=== PATIENT | male | born 1965 | race Caucasian/White ===

== ENCOUNTER → 2020-08-22 12:06 | Outpatient (REF) | payer OTHER, SELFPAY ==
[2020-08-22 13:22] LABS: Basophils Percent Auto 0.5 % (0-2); Eosinophils Percent Auto 0.5 % (0-4); Hematocrit 43.5 % (42-52); Hemoglobin 15.1 g/dl (14.0-18.0); Imm Gran Abs Auto 0.04 X10*3/uL (0.00-0.03); Imm Gran Pct Auto 0.5 % (0.0-0.4); Lymphocytes Absolute Auto 0.9 X10*3/uL (1.2-4.9); Lymphocytes Percent Auto 10.6 % (20-40); MANUAL DIFF FLAG NO; Mean Corpuscular HGB Conc 34.7 g/dl (31.0-36.0); Mean Corpuscular Hemoglobin 33.1 pg (27.0-33.0); Mean Corpuscular Volume 95.4 fL (80-98); Mean Platelet Volume 10.1 fL (9.4-12.4); Monocytes Absolute Auto 0.8 X10*3/uL (0.1-1.2); Monocytes Percent Auto 9.5 % (2-11); Neutrophils Absolute Auto 6.7 X10*3/uL (2.0-8.3); Neutrophils Percent Auto 78.4 % (45-73); Platelet Count 154 X10*3/uL (160-400); Red Blood Count 4.56 X10*6/uL (4.60-5.80); Red Cell Distribution Width 12.1 % (11.0-16.0); White Blood Count 8.6 X10*3/uL (4.8-10.8)
[2020-08-22 13:57] LABS: B Type Natriuretic Peptide 908 pg/mL (<100)
[2020-08-22 14:13] LABS: Thyroid Stimulating Hormone 3.12 uIU/mL (0.32-4.0)
[2020-08-22 14:16] LABS: Alanine Aminotransferase 32 U/L (0-40); Albumin Level 4.1 g/dL (3.5-5.0); Alkaline Phosphatase 50 U/L (39-117); Anion Gap 14 (12-20); Aspartate Amino Transferase 35 U/L (5-37); Bilirubin Total 2.7 mg/dL (0.0-1.0); Blood Urea Nitrogen 9 mg/dL (9-16); Calcium 9.5 mg/dL (8.4-10.2); Carbon Dioxide 29 mmol/L (22-29); Chloride 87 mmol/L (96-108); Cholesterol 125 mg/dL; Estimated Glomerular Filt Rate > 60; Glucose Random 101 mg/dL (60-115); Potassium 4.9 mmol/L (3.3-5.1); Sodium 125 mmol/L (135-145); Total Protein 6.6 g/dL (6.5-8.0)
== END ==
LOC: HO.CARD 12:06
PROVIDERS: Visit Provider Internal Medicine
DX: I48.91 Unspecified atrial fibrillation (principal); R60.0 Localized edema
CPT/HCPCS: 36415; 80053; 82465; 83880; 84443; 85025

== ENCOUNTER → 2020-08-23 10:46 | Outpatient (REF) | payer OTHER, SELFPAY ==
--- NOTE | 2020-08-23 10:53 | CA_ITS ---
Transthoracic Echocardiogram Patient (Last, First, Middle): Adria Castro, Gender: Male Date of : 1965 Age: 54 Procedure Date: 08/23/2020 Procedure Type: Transthoracic Echocardiogram Location: OP Height: 195.58 cm Weight: 136.08 kg BSA: 2.66 m2 Heart Rate: bpm BP: 114 / 80 mmHg Handling Tech: JUAN DIEGO Machado MD: Hunter Funez MD Bulk Filler: Bernardo Wilson MD Symptoms: NEW AFIB Study Quality: Technically Difficult/CONTRAST ECG Rhythm: Atrial Fibrillation Conclusions: - 1. Moderately dilated left ventricle with mild LVH with severely reduced LV ejection fraction at 20-25% 2. Severely biatrial enlargement 3. Moderately increased right ventricular size with low normal RV systolic function 4. Mild mitral regurgitation 5. [id number] tricuspid regurgitation 6. Moderately elevated right ventricular systolic pressure with significantly elevated right atrial pressures 7. No significant pericardial effusion Findings Procedure Information Contrast agent, definity, is being given per protocol without apparent complications. Left Ventricle Moderately increased left ventricular cavity size. There is mildly increased left ventricular wall thickness. The left ventricular systolic function is severely decreased. The visually estimated ejection fraction is between 20 25%. Diastolic function is indeterminate on the basis of available data. Right Ventricle Moderately increased right ventricular cavity size. There is mildly decreased right ventricular systolic function. Atria Severe biatrial enlargement. Aortic Valve There is mild calcification of the aortic valve. There is no aortic valve stenosis. There is no aortic valve regurgitation. Mitral Valve There is mild anterior and posterior mitral leaflet thickening. There is mild mitral annular calcification. There is mild mitral valve regurgitation. There is no mitral valve stenosis. Pulmonic Valve The pulmonic valve was not well visualized. Tricuspid Valve Likely normal tricuspid valve structure and function. There is mild to moderate tricuspid valve regurgitation. Significantly elevated right atrial pressure. Moderate pulmonary hypertension is present. Great Vessels There is mild dilatation of the ascending aorta measuring 3.90 cm. Venous The inferior vena cava is severely dilated and does not collapse with inspiration. Pericardium/Pleural There is no evidence of pericardial effusion. Prior Study Comparison No prior study available for comparison. Findings discussed with Dr. Funez Measurements 2D Linear Measurements IVSd: 1.20 0.6-0.9/0.6-1.0 cm LVIDd: 6.53 3.9-5.3/4.2-5.9 cm LVIDd Index: 2.45 2.4-3.2/2.2-3.1 cm/m2 LVIDs: 5.50 2.0-3.6 cm LVPWd: 1.19 0.7-1.1 cm Ao Root: 3.70 2.1-3.5 cm LA Diam: 5.50 2.7-3.8/3.0-4.0 cm LAIDs Index: 2.07 1.5-2.3 cm/m2 LV Mass: 448.54 67-162/88-224 g LV Mass Index: 168.62 43-95/49-115 g/m2 LVOT Diam: 2.20 3.0+(-)1.3 cm 2D Systolic Function EF 4C: 24.90 >55% EF 2C: 25.40 >55% EF BiP: 22.80 >55% Aortic Valve AoV Pk Brice: 1.28 AoV Mn Brice: 0.95 AoV VTI: 0.24 AoV Pk Grad: 7.00 Aov Mn Grad: 4.00 DENNIS Cont.VTI: 2.22 LVOT LVOT Pk Brice: 0.77 LVOT Mn Brice: 0.52 LVOT VTI: 0.14 LVOT Pk Grad: 2.00 LVOT Mn Grad: 1.00 LVOT Diam: 2.20 LVOT Area: 3.80 Tricuspid Valve TR Pk Brice: 3.17 TR Pk Grad: 40.00 RA Press: 15.00 RVSP: 55.00 Great Vessels Aorta Ao Root-2D: 3.70 2.0-3.7 cm Ao Asc: 3.90 2.1-3.4 cm Ao Arch: 2.90 Updated in Other Vendor System with Status of Final Bernardo Wilson MD electronically signed on 08/23/2020 12:13:19 PM with status of Final
== END ==
LOC: HO.CARD 10:46
PROVIDERS: Visit Provider Internal Medicine
DX: I48.91 Unspecified atrial fibrillation (principal); R60.9 Edema, unspecified
CPT/HCPCS: 93306; Q9957

== ENCOUNTER 2020-08-25 09:48 | Outpatient (REF) | payer OTHER, SELFPAY ==
--- NOTE | ~2020-08-25 | XR_ITS ---
EXAMINATION: XR CHEST CLINICAL INFORMATION: Congestive heart COMPARISON: None TECHNIQUE: 2 views of the chest were obtained. FINDINGS: Cardiomegaly and pulmonary venous congestion without overt edema. Lungs are clear. No pleural effusion or pneumothorax. No acute or suspicious osseous abnormalities. XR/XR chest 2V IMPRESSION: Cardiomegaly and pulmonary venous congestion without overt edema.
== END 2020-08-25 09:49 | disposition home or self-care (01) ==
LOC: HO.XRAY 09:48
PROVIDERS: PCP Internal Medicine; Referring Provider Internal Medicine; Visit Provider Internal Medicine Cardiovascular Disease
DX: I50.21 Acute systolic (congestive) heart failure (principal); I42.9 Cardiomyopathy, unspecified; I48.91 Unspecified atrial fibrillation; R06.81 Apnea, not elsewhere classified; G47.10 Hypersomnia, unspecified; Z79.899 Other long term (current) drug therapy
CPT/HCPCS: 71046

== ENCOUNTER → 2020-08-28 14:35 | Outpatient (REF) | payer OTHER, SELFPAY ==
--- NOTE | 2020-08-28 14:50 | ECG_ITS ---
Hook-up date: 2020-08-28 15:20:00 Duration: 42:32:00 Test Indications: PVC'S, UNSPEC AFIB Medications: 410144 QRS complexes 2958 Ventricular ectopics which represent 2 % of total QRS comp. * Supraventricular ectopics which represent % of total QRS comp. * Paced QRS complexs which represent % of total QRS comp. VENTRICULAR ECTOPY 2910 Isolated 6 Bigeminal Cycles 24 Couplets 0 Runs 0 Beats in Runs * Beats LONGEST at * BPM at :: -- * Beats FASTEST at * BPM at :: -- SUPRAVENTRICULAR ECTOPY * Isolated * Couplets * Runs * Beats in Runs * Beats LONGEST at * BPM at :: -- * Beats FASTEST at * BPM at :: -- HEART RATES 62 MIN at 05:27:24 2020-08-29 95 AVG 148 MAX at 11:33:16 2020-08-29 LONGEST RR 1.5760 secs at 06:17:32 2020-08-29 S-T LEVELS Channel 1 - 128 mm at 15:20:00 2020-08-28 - 128 mm at 15:20:00 2020-08-28 Channel 2 - 128 mm at 15:20:00 2020-08-28 - 128 mm at 15:20:00 2020-08-28 Channel 3 - 128 mm at 03:43:91 -- - 128 mm at 03:43:91 Underlying rhythm atrial fibrillation; Average ventricular rate 95/min; range 62-148/min; About 28% of the time, rate >100/min; Occasional PVCs (2%); Patient diary not available for review. Less than optimal rate control. Referred By: Bernardo Wilson Overread By: POP AUGUSTE
== END ==
LOC: HO.CARD 14:35
PROVIDERS: PCP Internal Medicine; Visit Provider Internal Medicine Cardiovascular Disease
DX: I49.3 Ventricular premature depolarization (principal)
CPT/HCPCS: 93226

== ENCOUNTER 2020-09-07 10:26 | Outpatient (REF) | payer OTHER, SELFPAY ==
[2020-09-07 13:10] LABS: B Type Natriuretic Peptide 631 pg/mL (<100)
[2020-09-07 13:15] LABS: Anion Gap 15 (12-20); Blood Urea Nitrogen 19 mg/dL (9-16); Calcium 10.6 mg/dL (8.4-10.2); Carbon Dioxide 29 mmol/L (22-29); Chloride 100 mmol/L (96-108); Estimated Glomerular Filt Rate > 60; Glucose Random 94 mg/dL (60-115); Potassium 5.1 mmol/L (3.3-5.1); Sodium 139 mmol/L (135-145)
[2020-09-07 13:33] LABS: Ferritin 864 ng/mL (20-250)
== END 2020-09-07 10:27 | disposition home or self-care (01) ==
LOC: HO.LAB 10:26
PROVIDERS: PCP Internal Medicine; Referring Provider Internal Medicine; Visit Provider Internal Medicine Cardiovascular Disease
DX: I50.21 Acute systolic (congestive) heart failure (principal); I42.9 Cardiomyopathy, unspecified; I48.91 Unspecified atrial fibrillation; Z79.899 Other long term (current) drug therapy
CPT/HCPCS: 36415; 80048; 82728; 83735; 83880; 93005

== ENCOUNTER → 2020-09-14 09:54 | Outpatient (REF) | payer OTHER, SELFPAY | LOC: HO.SL 09:54 | PROVIDERS: PCP Internal Medicine; Visit Provider Internal Medicine Cardiovascular Disease | DX: I42.9 Cardiomyopathy, unspecified (principal); I50.21 Acute systolic (congestive) heart failure; G47.30 Sleep apnea, unspecified | CPT/HCPCS: 95806 ==

== ENCOUNTER → 2020-10-02 13:43 | Outpatient (BNVA) | payer OTHER, SELFPAY | PROVIDERS: PCP Internal Medicine; Visit Provider Internal Medicine ==

== ENCOUNTER 2020-10-04 11:31 | Day surgery (SDC) | payer OTHER, SELFPAY ==
[2020-09-29 13:30] VITALS: BMI 32.6
--- NOTE | 2020-10-03 08:10 | HO.ANESPROP2 ---
Documented by User: Lizbeth Straussney 10/03/20 08:14 HPI - Anesthesia Eval Consult details Narrative: 55yo M for Cardioversion xarelto for afib PMFSH Active Problems Active Problems: All Active Problems (Updated 10/02/20 @ 14:38 by Ousmane Lock MD) GWENDOLYN (obstructive sleep apnea) (Acute) Obesity (BMI 30-39.9) (Acute) Hypersomnolence (Acute) Witnessed episode of apnea (Acute) Alcohol use (Acute) Heart failure with reduced ejection fraction (Acute) Atrial fibrillation (Acute) HTN (hypertension) (Acute) Cardiomyopathy (Acute) Past Medical History Medical History (Updated 10/02/20 @ 14:38 by Ousmane Lock MD) Acute systolic heart failure Atrial fibrillation Cardiomyopathy Heart failure with reduced ejection fraction HTN (hypertension) Obesity (BMI 30-39.9) GWENDOLYN (obstructive sleep apnea) Sleep apnea Family History Family History Father No problems noted. Mother No problems noted. Surgical History Surgical History Hx of knee surgery Social History Social History (Updated 10/02/20 @ 14:03 by NELL Giron) Patient Tobacco Use Status: Current everyday Tobacco user Tobacco use type: Cigarette Cigarette Packs Per Day: 1 Cigarettes Per Day: 20.0 Meds Allergies Allergy/AdvReac Type Severity Reaction Status Date / Time No Known Allergies Allergy Verified 10/02/20 13:59 Home Medications Medication Instructions Recorded Confirmed Last Taken Type lorazepam 0.5 mg tablet 0.5 mg PO TID PRN 08/25/20 09/29/20 10/04/20 09:00 History paroxetine HCl 10 mg tablet 10 mg PO DAILY 08/25/20 09/29/20 10/04/20 09:00 History apixaban [Eliquis] 1 tab PO BID 10/04/20 10/04/20 10/04/20 09:00 History Exam Exam Date and Time: October 03, 2020 0810 Height,Weight and Vital Signs: Height 6 ft 5 in Weight 125 kg Pertinent Lab Results Pertinent Lab Results: Laboratory Tests 08/22/20 09/07/20 09/07/20 12:12 11:45 11:45 WBC 8.6 Hgb 15.1 Hct 43.5 Plt Count 154 L Sodium 139 Potassium 5.1 Chloride 100 Carbon Dioxide 29 BUN 19 H D Creatinine 0.84 B-Natriuretic Peptide 631 H Narrative Narrative: EKG 08/2020 atrial fibrillation at 98 beats per minute nonspecific ST changes ECHO 08/2020 Conclusions: - 1. Moderately dilated left ventricle with mild LVH with severely reduced LV ejection fraction at 20-25% 2. Severely biatrial enlargement 3. Moderately increased right ventricular size with low normal RV systolic function 4. Mild mitral regurgitation 5. [id number] tricuspid regurgitation 6. Moderately elevated right ventricular systolic pressure with significantly elevated right atrial pressures 7. No significant pericardial effusion Assessment and Plan Assessment Anesthesia Assessment: Chart Reviewed Documented by User: Bryce Martin MD 10/04/20 12:53 [facility] Past Medical History Medical History (Updated 10/02/20 @ 14:38 by Ousmane Lock MD) Acute systolic heart failure Atrial fibrillation Cardiomyopathy Heart failure with reduced ejection fraction HTN (hypertension) Obesity (BMI 30-39.9) GWENDOLYN (obstructive sleep apnea) Sleep apnea Family History Family History Father No problems noted. Mother No problems noted. Family history of problems with anesthesia: No Surgical History Surgical History Hx of knee surgery History of Problems with Anesthesia: No Social History Social History (Updated 10/02/20 @ 14:03 by NELL Giron) Patient Tobacco Use Status: Current everyday Tobacco user Tobacco use type: Cigarette Cigarette Packs Per Day: 1 Cigarettes Per Day: 20.0 Meds Allergies Allergy/AdvReac Type Severity Reaction Status Date / Time No Known Allergies Allergy Verified 10/02/20 13:59 Home Medications Medication Instructions Recorded Confirmed Last Taken Type lorazepam 0.5 mg tablet 0.5 mg PO TID PRN 08/25/20 09/29/20 10/04/20 09:00 History paroxetine HCl 10 mg tablet 10 mg PO DAILY 08/25/20 09/29/20 10/04/20 09:00 History apixaban [Eliquis] 1 tab PO BID 10/04/20 10/04/20 10/04/20 09:00 History Exam Airway Mallampati Class: II TM Dist: <=3cm Neck ROM: Full Partial: Upper and Lower Heart: hpi Assessment and Plan Assessment Anesthesia Assessment: Anesthesia Plan Discussed and Chart Reviewed Final Anesthetic Review NPO: Yes ASA Class: IV Final Preanesthetic Review: No Changes in Pt Med Stat, Meds/Allgs Chart Reviewed, Consent Obtained/Reviewed and Anes Risks/Benef Reviewed Patient Risk: High Procedure Risk: Low Anesthetic Plan Anesthetic Plan: MAC: and Agree w/ Assess. and Plan Disposition: Standard PACU
--- NOTE | 2020-10-04 10:25 | MHC.SHP ---
Pre-Procedural Eval Section A Date of Service: 10/04/20 The patient is an INPATIENT: No Changes since office visit: Yes Patient answered all questions; No Cold of Flu in the past 2 weeks, No New Medical Problems and No Changes in Medication The History & Physical has been completed within 30 days and I have reviewed it.: Yes Section B Chief Complaint: a-fib Allergies: Allergies Allergy/AdvReac Type Severity Reaction Status Date / Time No Known Allergies Allergy Verified 10/02/20 13:59 Plan I have reviewed the history and physical and performed a pertinent physical examination on my patient. No changes have occurred unless specified.
[2020-10-04 12:06] VITALS: BP 138/88; PULSE 84; RESP 18; TEMP 36.2; O2SAT 96
[2020-10-04] MEDS: Lactated Ringers 1,000 ML 50 ML IVCONT (12:07)
--- NOTE | 2020-10-04 13:21 | HO.CARDIVERS ---
Cardioversion Procedure Note Cardioversion Date of Procedure: 10/04/2020 Ordering Provider: Myself Performing Provider: Myself Indication for Procedure: Persistent atrial fibrillation with new onset cardiomyopathy and congestive heart failure Pre-Op Diagnosis: Same Post-Op Diagnosis: Normal sinus rhythm Performed with Transesophageal Echo: No History: See my note Consent: Verbal and Written consent was obtained from the patient before starting and confirming oral anticoagulation use. The patient was made aware of the risk of the procedure including risks, benefits, alternatives and 2nd opinion. Procedure: After consent obtained, cardioversion pads were attached in AP configuration and the patient was sedated by the anesthesia team. Once adequate sedation achieved, patient was delivered 200 joules of biphasic synchronized energy in AP configuration Complications: None Impression: Successful conversion to sinus rhythm Recommendations: 1. 12 lead EKG 2. Holter monitor in 2 weeks 3. Continue oral anticoagulation uninterrupted for 6 weeks 4. Continue other medications.
--- NOTE | 2020-10-04 13:23 | ECG_ITS ---
Test Reason : CARDIOVERSION Blood Pressure : / mmHG Vent. Rate : 082 BPM Atrial Rate : 082 BPM P-R Int : 194 ms QRS Dur : 106 ms QT Int : 422 ms P-R-T Axes : 007 058 050 degrees QTc Int : 493 ms Normal sinus rhythm Prolonged QT Abnormal ECG No previous ECGs available Referred By: Bernardo Wilson Electronically Signed By:Say Colbert
[2020-10-04 13:26] VITALS: BP 111/78; PULSE 83; RESP 18; TEMP 36.9; O2SAT 95
[2020-10-04 13:41] VITALS: BP 126/82; PULSE 77; RESP 20; O2SAT 97
== END 2020-10-04 14:25 | disposition home or self-care (01) ==
PROVIDERS: PCP Internal Medicine; Visit Provider Internal Medicine Cardiovascular Disease
PROC: 5A2204Z Restoration of Cardiac Rhythm, Single (ICD-10-PCS; principal; 2020-10-04 13:00)
DX: I48.19 Other persistent atrial fibrillation (principal); Z79.01 Long term (current) use of anticoagulants; I11.0 Hypertensive heart disease with heart failure; I50.21 Acute systolic (congestive) heart failure; I42.9 Cardiomyopathy, unspecified; G47.33 Obstructive sleep apnea (adult) (pediatric); F17.210 Nicotine dependence, cigarettes, uncomplicated; Z79.899 Other long term (current) drug therapy
CPT/HCPCS: 92960; 93005

== ENCOUNTER → 2020-10-11 07:57 | Outpatient (REF) | payer OTHER, SELFPAY ==
--- NOTE | ~2020-10-11 | NM_ITS ---
Myocardial perfusion study Indication: Cardiomyopathy with congestive heart failure to evaluate for myocardial ischemia Technique: The patient was brought in for a Lexiscan perfusion study on 10/11/2020. Patient performed low-level exercise and was injected 0.4 mg of Lexiscan intravenously. Within a minute of injection, 40 mCi of sestamibi was given intravenously. Images were obtained using the SPECT gamma camera interlaced with the gating device. Images were obtained in supine position. Resting perfusion study was performed on 10/12/2020. Patient was administered 40 mCi of sestamibi intravenously at rest. Images were then obtained in supine position. Images obtained with and without CT attenuation. Total DLP 123 mGy-cm. Images were processed with the software and compared side to side in short axis, horizontal long axis and vertical long axis views. Findings: The stress perfusion study showed nonattenuated images show mildly reduced uptake in the inferior wall of the LV myocardium. Remainder of the LV myocardium is normally perfused. Attenuation corrected images show mildly reduced uptake in the apex of the LV myocardium. The gated study shows reduced LV systolic function with calculated LVEF of 32%. LV cavity is moderately dilated size. The gated study shows diffusely reduced wall thickening and contraction of segments. Resting study shows no change in perfusion pattern compared to stress perfusion study. Gating at rest reveals reduced diffuse wall motion with ejection fraction at 37%. The findings are consistent with no reversible defect suggestive of ischemia. NM/NM phani perf SPECT rest & str Impression: 1. Myocardial perfusion imaging study shows normal myocardial perfusion 2. Gated LVEF is 32% 3. Transient ischemic dilatation not present but LV cavity is dilated EKG is nondiagnostic for ischemia
--- NOTE | 2020-10-11 08:01 | CA_ITS ---
Acquisition Time: 2020-10-11 08:00:19 Total Exercise Time: 00:02:00 Test Indications: Abnormal ECG Medications: CARVEDILOL FUROSEMIDE LORAZAPAM PAROXETINE ENTRESTO POTASSIUM Protocol: LEXISCAN Max HR: 100 BPM 61% of Pred: 163 BPM Max BP: 128/082 mmHG Max Work Load: 1.6 METS Pharmacological stress test with Lexiscan injection, while walking on treadmill without anginal symptoms, without arrythmia, with normotensive response to injection, with nondiagnostic EKG for ischemia. Nuclear images pending. Test reviewed with Dr Wilson. Referred By: Bernardo Wilson Overread By: CATRACHITO ABREU
== END ==
LOC: HO.CARD 07:57
PROVIDERS: PCP Internal Medicine; Visit Provider Internal Medicine Cardiovascular Disease
DX: I42.9 Cardiomyopathy, unspecified (principal)
CPT/HCPCS: 78452; 93017; A9500; J0280; J2785

== ENCOUNTER → 2020-10-18 10:02 | Outpatient (REF) | payer OTHER, SELFPAY ==
--- NOTE | 2020-10-18 12:00 | ECG_ITS ---
Hook-up date: 2020-10-18 10:35:00 Duration: 28:24:00 Test Indications: UNSPEC AFIB Medications: 754125 QRS complexes 5 Ventricular ectopics which represent <1 % of total QRS comp. 35 Supraventricular ectopics which represent <1 % of total QRS comp. * Paced QRS complexs which represent % of total QRS comp. VENTRICULAR ECTOPY 5 Isolated 0 Bigeminal Cycles 0 Couplets 0 Runs 0 Beats in Runs * Beats LONGEST at * BPM at :: -- * Beats FASTEST at * BPM at :: -- SUPRAVENTRICULAR ECTOPY 31 Isolated 2 Couplets 0 Runs 0 Beats in Runs * Beats LONGEST at * BPM at :: -- * Beats FASTEST at * BPM at :: -- HEART RATES 60 MIN at 05:19:04 2020-10-19 83 AVG 128 MAX at 09:05:25 2020-10-19 LONGEST RR 1.1040 secs at 05:19:02 2020-10-19 S-T LEVELS Channel 1 - 128 mm at 10:35:00 2020-10-18 - 128 mm at 10:35:00 2020-10-18 Channel 2 - 128 mm at 10:35:00 2020-10-18 - 128 mm at 10:35:00 2020-10-18 Channel 3 - 128 mm at 02:95:41 -- - 128 mm at 02:95:41 Underlying rhythm is sinus; Average ventricular rate 83/min; range 60-128/min; Rare PACs/PVCs; No sustained arrhythmias; Patient did not report any symptoms in the diary Referred By: Hunter Funez Overread By: POP AUGUSTE
== END ==
LOC: HO.CARD 10:02
PROVIDERS: PCP Internal Medicine; Referring Provider Internal Medicine; Visit Provider Internal Medicine Cardiovascular Disease
DX: I48.91 Unspecified atrial fibrillation (principal)
CPT/HCPCS: 93226

== ENCOUNTER → 2020-11-09 08:33 | Outpatient (BNVA) | payer OTHER, SELFPAY | PROVIDERS: PCP Internal Medicine; Referring Provider Internal Medicine; Visit Provider Internal Medicine Cardiovascular Disease | DX: I50.20 Unspecified systolic (congestive) heart failure (principal); I42.9 Cardiomyopathy, unspecified; I48.0 Paroxysmal atrial fibrillation; Z79.01 Long term (current) use of anticoagulants; Z79.899 Other long term (current) drug therapy; Z98.890 Other specified postprocedural states | CPT/HCPCS: 93005 ==

== ENCOUNTER 2020-11-16 10:59 | Outpatient (REF) | payer OTHER, SELFPAY ==
[2020-11-16 12:36] LABS: B Type Natriuretic Peptide 69 pg/mL (<100)
[2020-11-16 12:39] LABS: Anion Gap 12 (12-20); Blood Urea Nitrogen 16 mg/dL (9-16); Carbon Dioxide 29 mmol/L (22-29); Chloride 101 mmol/L (96-108); Estimated Glomerular Filt Rate > 60; Glucose Random 105 mg/dL (60-115); Potassium 5.2 mmol/L (3.3-5.1); Sodium 137 mmol/L (135-145)
[2020-11-16 12:54] LABS: Calcium 10.7 mg/dL (8.4-10.2)
== END 2020-11-16 11:00 | disposition home or self-care (01) ==
LOC: HO.LAB 10:59
PROVIDERS: PCP Internal Medicine; Visit Provider Internal Medicine Cardiovascular Disease
DX: I50.21 Acute systolic (congestive) heart failure (principal); I42.9 Cardiomyopathy, unspecified
CPT/HCPCS: 36415; 80048; 83880

== ENCOUNTER → 2020-11-29 09:53 | Outpatient (BNVA) | payer OTHER, SELFPAY | PROVIDERS: PCP Internal Medicine; Visit Provider Internal Medicine ==

== ENCOUNTER → 2020-12-05 11:25 | Outpatient (REF) | payer OTHER, SELFPAY ==
--- NOTE | 2020-12-05 11:29 | CA_ITS ---
Transthoracic Echocardiogram Patient (Last, First, Middle): Adria Castro, Gender: Male Date of : 1965 Age: 55 Procedure Date: 12/05/2020 Procedure Type: Transthoracic Echocardiogram Location: OP Height: 193.04 cm Weight: 124.29 kg BSA: 2.53 m2 Heart Rate: bpm BP: 120 / 80 mmHg Trolley Operator: KENTRELL Referring MD: Bernardo Wilson MD Symptoms: I42.9 - Cardiomyopathy, unspecified Study Quality: Fair ECG Rhythm: Sinus Conclusions: - The left ventricular systolic function is normal. The calculated ejection fraction is 63% by biplane method. Findings Left Ventricle Normal left ventricular cavity size. The left ventricular systolic function is normal. The calculated ejection fraction is 63% by biplane method. There is no evidence of regional wall motion abnormalities. Prior Study Comparison Changes noted compared to prior study dated: 08/23/2020. Improved LVEF. Measurements 2D Linear Measurements LVIDd: 5.82 3.9-5.3/4.2-5.9 cm LVIDd Index: 2.30 2.4-3.2/2.2-3.1 cm/m2 LVIDs: 4.09 2.0-3.6 cm 2D Systolic Function EF 4C: 64.30 >55% EF 2C: 62.80 >55% EF BiP: 63.30 >55% Mitral Valve MV Pk E: 0.59 MV PK A: 0.75 MV Decel Time: 171.00 E/A: 0.80 E'Lateral: 5.98 E'Medial: 5.66 E/E' Med: 10.50 E/E' Lat: 9.90 PHT: 50.00 MVA PHT: 4.40 Decel [place]: 3.48 Diastolic Function MV Pk E: 0.59 MV Pk A: 0.75 E/A: 0.80 E'Medial: 5.66 E/E' Med: 10.50 E' Laterial: 5.98 E/E' Lat: 9.90 Updated in Other Vendor System with Status of Final Jonnathan Shearer MD electronically signed on 12/05/2020 4:55:18 PM with status of Final
== END ==
LOC: HO.CARD 11:25
PROVIDERS: PCP Internal Medicine; Visit Provider Internal Medicine Cardiovascular Disease
DX: I42.9 Cardiomyopathy, unspecified (principal)
CPT/HCPCS: 93308; Q9957

== ENCOUNTER → 2020-12-21 12:21 | Outpatient (BNVA) | payer OTHER, SELFPAY | PROVIDERS: PCP Internal Medicine; Referring Provider Internal Medicine; Visit Provider Internal Medicine Cardiovascular Disease | DX: I50.20 Unspecified systolic (congestive) heart failure (principal); I48.0 Paroxysmal atrial fibrillation | CPT/HCPCS: 93005 ==

== ENCOUNTER → 2021-03-27 10:17 | Outpatient (BNVA) | payer OTHER, SELFPAY | PROVIDERS: PCP Internal Medicine; Visit Provider Internal Medicine ==

== ENCOUNTER → 2021-07-25 08:36 | Outpatient (REF) | payer OTHER, SELFPAY ==
--- NOTE | 2021-07-25 08:39 | CA_ITS ---
Transthoracic Echocardiogram Patient (Last, First, Middle): Adria Castro, Gender: Male Date of : 1965 Age: 55 Procedure Date: 07/25/2021 Procedure Type: Transthoracic Echocardiogram Location: OP Height: 193.04 cm Weight: 124.29 kg BSA: 2.53 m2 Heart Rate: bpm BP: 140 / 70 mmHg Reference Archivist: JUAN DIEGO Machado MD: Bernardo Wilson MD Electric Motor [employer] Generator Assembler: Bernardo Wilson MD Symptoms: I50.20 - Unspecified systolic (congestive) heart failure Study Quality: Fair ECG Rhythm: Sinus Conclusions: - 1. Normal LV systolic function with grade 1 diastolic dysfunction 2. Mildly dilated left atrium 3. Normal cardiac valvular Doppler 4. Normal RV systolic pressure 5. No pericardial effusion Findings Left Ventricle Normal left ventricular size, thickness, and systolic function. The visually estimated ejection fraction is between 55-60%. Regional wall motion abnormalities can not be excluded due to suboptimal endocardial definition. Spectral Doppler is indicative of an impaired relaxation filling pattern. E/E prime ratio is <8, consistent with normal filling pressures. Evidence suggests grade I (mild) diastolic dysfunction. Right Ventricle The right ventricle was not well visualized. Atria The left atrium is mildly dilated. Interatrial shunt cannot be excluded. The right atrium was not well visualized. Aortic Valve The aortic valve structure and function is likely normal. There is no aortic valve stenosis. There is no aortic valve regurgitation. Mitral Valve Likely normal mitral valve structure and function. There is trace mitral valve regurgitation. There is no mitral valve stenosis. Pulmonic Valve The pulmonic valve was not well visualized. Tricuspid Valve Likely normal tricuspid valve structure and function. There is trace tricuspid valve regurgitation. The right ventricular systolic pressure is normal. The right ventricular systolic pressure is 22 mmHg. Normal right atrial pressure. There is no evidence of pulmonary hypertension. Great Vessels The aorta was not well visualized. The pulmonary artery was not well visualized. Venous The inferior vena cava is normal in size and collapses greater than 50% with inspiration. Pericardium/Pleural There is no evidence of pericardial effusion. Prior Study Comparison No significant change compared to prior study. Measurements 2D Linear Measurements IVSd: 1.15 0.6-0.9/0.6-1.0 cm LVIDd: 5.59 3.9-5.3/4.2-5.9 cm LVIDd Index: 2.21 2.4-3.2/2.2-3.1 cm/m2 LVIDs: 3.54 2.0-3.6 cm LVPWd: 1.16 0.7-1.1 cm LA Diam: 4.40 2.7-3.8/3.0-4.0 cm LAIDs Index: 1.74 1.5-2.3 cm/m2 LV Mass: 331.10 67-162/88-224 g LV Mass Index: 130.87 43-95/49-115 g/m2 LVOT Diam: 2.40 3.0+(-)1.3 cm 2D Systolic Function EF 4C: 50.40 >55% EF 2C: 56.00 >55% Mitral Valve MV Pk E: 0.58 MV PK A: 0.83 MV Decel Time: 320.00 E/A: 0.70 E'Lateral: 6.96 E'Medial: 6.53 E/E' Med: 8.80 E/E' Lat: 8.30 PHT: 94.00 MVA PHT: 2.34 Decel [place]: 1.80 Aortic Valve AoV Pk Brice: 1.72 AoV Mn Brice: 1.12 AoV VTI: 0.36 AoV Pk Grad: 12.00 Aov Mn Grad: 6.00 DENNIS Cont.VTI: 3.28 LVOT LVOT Pk Brice: 1.18 LVOT Mn Brice: 0.73 LVOT VTI: 0.26 LVOT Pk Grad: 6.00 LVOT Mn Grad: 3.00 LVOT Diam: 2.40 LVOT Area: 4.52 Diastolic Function MV Pk E: 0.58 MV Pk A: 0.83 E/A: 0.70 E'Medial: 6.53 E/E' Med: 8.80 E' Laterial: 6.96 E/E' Lat: 8.30 Right Ventricle TAPSE (mm): 2.53 TVS' Brice: 13.10 Tricuspid Valve TR Pk Brice: 2.17 TR Pk Grad: 19.00 RA Press: 3.00 RVSP: 22.00 Great Vessels Aorta Sinus of Valsalva: 4.04 2.0-3.[address] [place]: 3.75 1.7-3.4 cm Ao Asc: 3.80 2.1-3.4 cm Ao Arch: 3.70 Updated in Other Vendor System with Status of Final Bernardo Wilson MD electronically signed on 07/25/2021 12:41:42 PM with status of Final
--- NOTE | 2021-07-25 08:40 | HM_ITS ---
Conclusion: Patient was monitored for total period of 3 days 1. Baseline was normal sinus rhythm with average heart of 73 beats per minute 2. No significant pauses or bradycardia noted 3. No atrial fibrillation noted next 4. Very rare ectopy noted 5. No patient reported events MTDD
== END ==
LOC: HO.CARD 08:36
PROVIDERS: Visit Provider Internal Medicine Cardiovascular Disease
DX: I50.20 Unspecified systolic (congestive) heart failure (principal); I48.0 Paroxysmal atrial fibrillation
CPT/HCPCS: 93242; 93306

== ENCOUNTER → 2021-08-15 13:10 | Outpatient (BNVA) | payer OTHER, SELFPAY | PROVIDERS: PCP Internal Medicine; Referring Provider Internal Medicine; Visit Provider Internal Medicine Cardiovascular Disease | DX: I50.9 Heart failure, unspecified (principal); I48.0 Paroxysmal atrial fibrillation | CPT/HCPCS: 93005 ==

== ENCOUNTER → 2022-04-01 10:15 | Outpatient (BNVA) | payer OTHER, SELFPAY | PROVIDERS: PCP Internal Medicine; Visit Provider Internal Medicine | DX: Z13.89 Encounter for screening for other disorder (principal) ==

== ENCOUNTER 2022-04-25 10:28 | Outpatient (REF) | payer OTHER, SELFPAY ==
[2022-04-25 11:50] LABS: Hematocrit 44.7 % (42.0-52.0); Hemoglobin 15.4 g/dl (14.0-18.0); Mean Corpuscular HGB Conc 34.5 g/dl (31.0-36.0); Mean Corpuscular Hemoglobin 32.7 pg (27.0-33.0); Mean Corpuscular Volume 94.9 fL (80.0-98.0); Mean Platelet Volume 9.1 fL (9.4-12.4); Platelet Count 223 X10*3/uL (160-400); Red Blood Count 4.71 X10*6/uL (4.60-5.80); Red Cell Distribution Width 12.1 % (11.0-16.0); White Blood Count 6.5 X10*3/uL (4.8-10.8)
[2022-04-25 12:36] LABS: Anion Gap 13 (12-20); Blood Urea Nitrogen 11 mg/dL (9-16); Calcium 9.8 mg/dL (8.4-10.2); Carbon Dioxide 28 mmol/L (22-29); Chloride 99 mmol/L (96-108); Estimated Glomerular Filt Rate > 60; Glucose Random 112 mg/dL (60-115); Potassium 4.7 mmol/L (3.3-5.1); Sodium 135 mmol/L (135-145)
== END 2022-04-25 10:29 | disposition home or self-care (01) ==
LOC: HO.LAB 10:28
PROVIDERS: PCP Internal Medicine; Referring Provider Internal Medicine; Visit Provider Internal Medicine Cardiovascular Disease
DX: I11.0 Hypertensive heart disease with heart failure (principal); I50.9 Heart failure, unspecified; I48.0 Paroxysmal atrial fibrillation; Z79.899 Other long term (current) drug therapy
CPT/HCPCS: 36415; 80048; 85027; 93005

== ENCOUNTER 2022-09-30 10:26 | Outpatient (AMB) | payer OTHER, SELFPAY ==
[2022-09-30 10:36] VITALS: BP 120/82; PULSE 62; O2SAT 97; BMI 35.5
--- NOTE | 2022-09-30 10:36 | MHC.OFFVIS ---
Intake Vital Signs 09/30/22 10:36 Height 6 ft 5 in Weight 299 lb BMI 35.5 BP 120/82 Blood Pressure Location Lt brachial Position Sitting Pulse 62 Pulse Source Pulse Oximeter Pulse Oximetry (%) 97 Oxygen Delivery Method Room Air Intake Visit Reasons: Sleep apnea Intake Note: pt is here for follow up and states he is feeling good. 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 Has been using his CPAP regularly with full face mask, lately there has been some air leak at night, he needs a new mask. , using most of the nights for at least 5 hours per night and sleeps well. Except for the air leak as described above he has no other significant problems with the the CPAP device. Weight remains unchanged. [facility] Medical History Acute systolic heart failure Atrial fibrillation Cardiomyopathy Heart failure with reduced ejection fraction HTN (hypertension) Obesity (BMI 30-39.9) GWENDOLYN (obstructive sleep apnea) Paroxysmal atrial fibrillation Sleep apnea Surgical History Hx of knee surgery Family History Father No problems noted. Mother No problems noted. Social History Patient Tobacco Use Status: Current everyday Tobacco user Tobacco use type: Cigarette Cigarette Packs Per Day: 1 Cigarettes Per Day: 20.0 Years Smoked: 40 +/- Review of Systems Const All systems reviewed & are unremarkable except as noted in HPI and below Denies snoring Eyes Reports no additional complaints ENT Reports no additional complaints Card Denies chest pain, Reports irregular heart rhythm and Denies leg edema Resp Denies cough, Denies snoring and Denies wheezing GI Reports no additional complaints Reports no additional complaints Musc Reports no additional complaints Skin/Breast Reports system reviewed and no additional complaints, except as documented Neuro Reports no additional complaints Psych Reports depression (Treated with minimal medication) Aller/Immun Denies wheezing Physical Exam Vital Signs: Last Vital Signs Pulse 62 09/30/22 10:36 BP 120/82 09/30/22 10:36 Pulse Ox 97 09/30/22 10:36 Oxygen Delivery Method Room Air 09/30/22 10:36 BMI result Body Mass Index 35.5 Const General: comfortable, no acute distress, alert and awake Orientation/consciousness: patient oriented x3 HEENT Head: Yes normal to inspection General nose exam: No nasal polyps present and No nasal discharge present Face and sinus: Yes sinuses nontender Mouth: oropharynx normal Throat: Yes posterior oropharynx normal Eyes General: appearance normal, both eyes and all related structures Neck Neck: Yes normal visual inspection, Yes no lymphadenopathy, Yes trachea midline and Yes no JVD Thyroid: Thyroid normal Chest Chest palpation & inspection: normal inspection of the chest, normal palpation of entire chest wall and no tenderness Resp Other: Percussion note resonant, good breath sounds on both sides, no wheezes rhonchi or Creps heard Cardio Palpation: normal PMI Rate: regular rate Rhythm: abnormal rhythm (Atrial fib) Heart sounds: no gallops and no murmurs Peripheral pulses: Peripheral pulses 2+ throughout GI Inspection: Yes other (Abdomen is obese and protuberant .) Palpation (GI): Soft to palpation, nontender, No hepatosplenomegaly present and no masses Auscultation: normal bowel sounds Back/Spine/Pelvis Thoracic/Lumbar Spine: thoracic and lumbar spine normal to inspection Skin General skin exam: no rashes or lesions noted Neuro General: patient oriented x3 and no focal motor deficits Cranial nerves: Yes CN's II-XII intact bilaterally Extrem General: Yes normal to inspection, Yes no clubbing, cyanosis or edema and Yes no calf tenderness Psych Appearance: grossly normal and well kempt Speech and movement: Normal speech and movement present Results Reviewed Results Reviewed: Compliance report for the last 30 nights is reviewed. He used 28/30 nights, 93%. Average use per night 5 hours 16 minutes. Pressure used mostly 12.5-13 cm. There is evidence of air leak maximum 79.5 L per minute. Residual AHI only 1.2 Assessment & Plan Assessment & Plan (1) Obesity (BMI 30-39.9): Comment: DISCUSSED ABOUT THE WEIGHT ISSUE ,hAS NOT LOST MUCH WEIGHT BUT MOTIVATED TO LOSE WEIGHT. ADVISED TO LOSE ABOUT 10-15 LB OF WEIGHT. DISCUSSED ABOUT DIET AND ALSO IMPORTANCE OF EXERCISE LIKE WALKING UP TO 2 MILES DAILY, Code(s): E66.9 - Obesity, unspecified (2) GWENDOLYN (obstructive sleep apnea): Comment: HE IS VERY COMPLIANT IN USING CPAP AT NIGHT , AND IS BENEFITING. NO SPECIFIC ISSUES WITH THE MASK OR CPAP DEVICE AT THIS TIME., EXCEPT FOR THE AIR LEAK. NEW MASK IS ORDERED, ADVISED TO TIGHTEN THE STRAPS AT NIGHT. Code(s): G47.33 - Obstructive sleep apnea (adult) (pediatric) Coding Level of Care Code Est Pt Level 3 (53206) Diagnoses Obesity (BMI 30-39.9) E66.9 GWENDOLYN (obstructive sleep apnea) G47.33
== END 2022-09-30 11:14 | disposition home or self-care (01) ==
PROVIDERS: PCP Internal Medicine; Visit Provider Internal Medicine
DX: E66.9 Obesity, unspecified (principal); G47.33 Obstructive sleep apnea (adult) (pediatric)
CPT/HCPCS: 99213

== ENCOUNTER → 2022-09-30 10:26 | Outpatient (BNVA) | payer OTHER, SELFPAY | PROVIDERS: Visit Provider Internal Medicine ==

== ENCOUNTER → 2023-05-14 12:53 | Outpatient (REF) | payer OTHER, SELFPAY ==
--- NOTE | 2023-05-14 12:58 | CA_ITS ---
Transthoracic Echocardiogram Patient (Last, First, Middle): Adria Castro, Gender: Male Date of : 1965 Age: 57 Procedure Date: 05/14/2023 Procedure Type: Transthoracic Echocardiogram Location: OP Height: 193.04 cm Weight: 131.54 kg BSA: 2.59 m2 Heart Rate: bpm BP: 130 / 80 mmHg Solar Photovoltaic Electrician: TO Referring MD: Bernardo Wilson MD Sumo Wrestler: Bernardo Wilson MD Symptoms: I50.9 - Heart failure, unspecified Study Quality: Technically Difficult ECG Rhythm: Atrial Fibrillation Conclusions: - 1. Technically limited study due to patient's body habitus 2. Normal LV ejection fraction 55-60% with mild LVH 3. At least moderate left atrial enlargement 4. Limited visualization of cardiac valves with cardiac valvular Dopplers within normal limits 5. Mildly dilated ascending aorta Findings Procedure Information The study quality is limited by patients body habitus. The patient declines contrast. Left Ventricle Normal left ventricular size and systolic function. There is mildly increased left ventricular wall thickness. The visually estimated ejection fraction is between 55-60%. Diastolic function is indeterminate on the basis of available data. Right Ventricle The right ventricle was not well visualized. Atria The left atrium is moderately dilated. There is no evidence of interatrial shunt. The right atrium is mildly dilated. Aortic Valve The aortic valve was not well visualized. There is no aortic valve stenosis. There is no aortic valve regurgitation. Mitral Valve The mitral valve was not well visualized. There is trace mitral valve regurgitation. There is no mitral valve stenosis. Pulmonic Valve The pulmonic valve was not well visualized. Tricuspid Valve The tricuspid valve was not well visualized. There is trace tricuspid valve regurgitation. The right ventricular systolic pressure is normal. The right ventricular systolic pressure is 30 mmHg. Normal right atrial pressure. There is no evidence of pulmonary hypertension. Great Vessels The pulmonary artery was not well visualized. There is mild dilatation of the ascending aorta measuring 4.20 cm. Venous The inferior vena cava is normal in size and collapses greater than 50% with inspiration. Pericardium/Pleural The pericardium was not well visualized. Measurements 2D Linear Measurements IVSd: 1.30 0.6-0.9/0.6-1.0 cm LVIDd: 5.32 3.9-5.3/4.2-5.9 cm LVIDd Index: 2.05 2.4-3.2/2.2-3.1 cm/m2 LVIDs: 3.52 2.0-3.6 cm LVPWd: 1.27 0.7-1.1 cm LA Diam: 5.00 2.7-3.8/3.0-4.0 cm LAIDs Index: 1.93 1.5-2.3 cm/m2 LV Mass: 354.22 67-162/88-224 g LV Mass Index: 136.77 43-95/49-115 g/m2 LVOT Diam: 2.40 3.0+(-)1.3 cm 2D Systolic Function EF 4C: 54.10 >55% Mitral Valve MV Pk E: 0.69 MV Decel Time: 216.00 E'Lateral: 10.60 E'Medial: 8.70 E/E' Med: 8.00 E/E' Lat: 6.50 PHT: 63.00 MVA PHT: 3.49 Decel Newton: 3.21 Aortic Valve AoV Pk Brice: 1.41 AoV Pk Grad: 8.00 LVOT LVOT Pk Brice: 0.93 LVOT Mn Brice: 0.61 LVOT VTI: 0.16 LVOT Pk Grad: 3.00 LVOT Mn Grad: 2.00 LVOT Diam: 2.40 LVOT Area: 4.52 Diastolic Function MV Pk E: 0.69 E'Medial: 8.70 E/E' Med: 8.00 E' Laterial: 10.60 E/E' Lat: 6.50 Right Ventricle TAPSE (mm): 21.00 TVS' Brice: 14.50 Tricuspid Valve TR Pk Brice: 2.33 TR Pk Grad: 22.00 RA Press: 8.00 RVSP: 30.00 Great Vessels Aorta Sinus of Valsalva: 4.02 2.0-3.5 cm Ao Asc: 4.20 2.1-3.4 cm Updated in Other Vendor System with Status of Final Bernardo Wilson MD electronically signed on 05/15/2023 4:41:47 PM with status of Final
== END ==
LOC: HO.CARD 12:53
PROVIDERS: PCP Internal Medicine; Visit Provider Internal Medicine Cardiovascular Disease
DX: I50.9 Heart failure, unspecified (principal)
CPT/HCPCS: 93306

== ENCOUNTER → 2023-05-14 12:58 | Outpatient (BNV) | payer OTHER, SELFPAY | PROVIDERS: PCP Internal Medicine; Visit Provider Internal Medicine Cardiovascular Disease | DX: I48.0 Paroxysmal atrial fibrillation (principal); I50.9 Heart failure, unspecified | CPT/HCPCS: 93306 ==

== ENCOUNTER 2023-06-16 09:14 | Outpatient (AMB) | payer OTHER, SELFPAY ==
--- NOTE | 2023-06-16 09:17 | MHC.OFFVIS ---
Intake Vital Signs 06/16/23 09:18 06/16/23 09:40 Height 6 ft 5 in Weight 308 lb 10.354 oz BMI 36.6 BP 156/88 H 122/70 Blood Pressure Location Lt brachial Rt brachial Position Sitting Pulse 83 Intake Visit Reasons: 1 year fu after echo (rs) Intake Note: 1 year follow-up with ekg and echo results feeling good Char Filter Operator Required: No Allergies No Known Allergies Allergy (Verified 09/30/22 10:40) Medication List - Last Reconciled 06/16/23 by Bernardo Wilson MD apixaban (Eliquis) 5 mg PO BID carvedilol 12.5 mg PO BID lorazepam 0.5 mg PO TID PRN paroxetine HCl 20 mg PO DAILY sacubitril-valsartan 97-103 mg (Entresto) 1 tab PO BID 90 days HPI HPI Comments History of Present Illness Details Cristofer comes for annual follow-up after recent echocardiogram. Echocardiogram showed presence of atrial fibrillation at that time however his LV ejection fraction within normal limits mild LVH with at least moderate left atrial enlargement with mildly dilated ascending aorta. He does not notice any new symptoms. Denies any palpitation or worsening shortness of breath. He denies any leg edema, worsening symptoms of heart failure at this point in time. Takes all his medications. He said for 4 days he could not use his CPAP because of the flu. Otherwise he has been using CPAP. Taking his oral anticoagulation religiously. No bleeding issues or neurologic events. He said his blood pressure measured at home are usually within normal range. [facility] Medical History Paroxysmal atrial fibrillation GWENDOLYN (obstructive sleep apnea) Obesity (BMI 30-39.9) Sleep apnea Heart failure with reduced ejection fraction Atrial fibrillation HTN (hypertension) Cardiomyopathy Acute systolic heart failure Surgical History Hx of knee surgery Family History Father No problems noted. Mother No problems noted. Social History Patient Tobacco Use Status: Current everyday Tobacco user Tobacco use type: Cigarette Cigarette Packs Per Day: 1 Cigarettes Per Day: 20.0 Years Smoked: 40 +/- Review of Systems Const Denies chills, Denies fatigue, Denies fever(s), Denies frequent falls, Denies weakness, Denies weight gain and Denies weight loss ENT Denies dizziness Card Denies chest pain, Denies leg edema, Denies lightheadedness, Denies palpitations, Denies dyspnea, Denies dyspnea on exertion, Denies orthopnea and Denies other (loss of consciousness) Resp Denies cough, Denies dyspnea and Denies dyspnea on exertion GI Denies hematochezia and Denies change in stool character Musc Denies abnormal gait, Denies muscle weakness, Denies numbness, Denies radiating pain into limb and Denies tingling Neuro Denies abnormal gait, Denies dizziness, Denies frequent falls, Denies numbness, Denies tingling and Denies weakness Endo Denies fatigue and Denies palpitations Physical Exam Vital Signs: Last Vital Signs Pulse 83 06/16/23 09:18 BP 156/88 H 06/16/23 09:18 BMI result Body Mass Index 36.6 Const General: cooperative, comfortable, no acute distress, alert and awake Nutritional Appearance: obese Orientation/consciousness: patient oriented x3 Limitations: no limitations Neck Neck: Yes trachea midline, Yes supple and Yes no JVD Resp Effort & Inspection: normal respiratory effort Auscultation: clear to auscultation bilaterally Cardio Jugular venous distension: no JVD Palpation: normal PMI Rhythm: abnormal rhythm irregularly irregular Heart sounds: S1 normal heart sound present, S2 normal heart sound present, no click, no gallops, no murmurs and no rubs Peripheral pulses: Peripheral pulses 2+ throughout GI Inspection: Yes obesity Auscultation: normal bowel sounds Skin General skin exam: no rashes or lesions noted Neuro General: patient oriented x3 and no focal motor deficits Extrem General: Yes no clubbing, cyanosis or edema Psych Appearance: grossly normal Office Procedures EKG Details: EKG shows atrial fibrillation at 83 beats per minute [id number], Complete Assessment & Plan Assessment & Plan (1) Persistent atrial fibrillation: Code(s): I48.19 - Other persistent atrial fibrillation Plan: Patient presents with persistent atrial fibrillation at least for a month. He has no new symptoms of heart failure at this point time. He has not aware as to when his heart went into AFib at this point in time. Given his age and prior issues with atrial fibrillation will pursue rhythm control approach again. Slow and gradual withdrawal from alcohol use was discussed. Continued use of CPAP machine. Continue aggressive blood pressure control continue current therapy. Continue full oral anticoagulation Eliquis. Will set him up for synchronized cardioversion next week. Prior to that 2 days before will start him on Multaq 400 mg b.i.d. to help with achieving normal rhythm and pursuing normal rhythm control approach in the long run. Importance of rhythm control approach was discussed. Continue aggressive blood pressure control. (2) CHF (congestive heart failure), NYHA class I: Code(s): I50.9 - Heart failure, unspecified Plan: Heart failure in the past with severe cardiomyopathy with normalized LV ejection fraction since maintenance rhythm control of blood pressure and CPAP therapy. Abstinence from alcohol was discussed again. Continue current neurohormonal modulation with carvedilol as well as Entresto. His blood pressure after repeat measurement was within normal limits. Will pursue rhythm control approach as above. Continue CPAP therapy. Management was discussed in details. Will follow up in the clinic in 4 weeks time after cardioversion. Thank you me partake in his care Coding Level of Care Code Est Pt Level 4 (17491) Diagnoses Persistent atrial fibrillation I48.19 CHF (congestive heart failure), NYHA class I I50.9 CPT Codes EKG - CPT: [id number], Complete ([id number])
[2023-06-16 09:18] VITALS: BP 156/88; PULSE 83; BMI 36.6
[2023-06-16 09:40] VITALS: BP 122/70
== END 2023-06-16 09:56 | disposition home or self-care (01) ==
PROVIDERS: PCP Internal Medicine; Visit Provider Internal Medicine Cardiovascular Disease
DX: I48.19 Other persistent atrial fibrillation (principal); I50.9 Heart failure, unspecified
CPT/HCPCS: 93010; 99214

== ENCOUNTER → 2023-06-16 09:14 | Outpatient (BNVA) | payer OTHER, SELFPAY | PROVIDERS: PCP Internal Medicine; Visit Provider Internal Medicine Cardiovascular Disease | DX: I48.19 Other persistent atrial fibrillation (principal); I50.9 Heart failure, unspecified; Z79.01 Long term (current) use of anticoagulants | CPT/HCPCS: 93005 ==

== ENCOUNTER 2023-06-25 10:26 | Day surgery (SDC) | payer OTHER, SELFPAY ==
--- NOTE | 2023-06-23 13:30 | HO.ANESPROP2 ---
Documented by User: Lizbeth Godoy NP 06/23/23 13:31 HPI - Anesthesia Eval Consult details Narrative: 57yo M for Cardioversion Eliquis for afib PMFSH Active Problems Active Problems: All Active Problems (Updated 06/16/23 @ 09:44 by Bernardo Wilson MD) Persistent atrial fibrillation (Acute) CHF (congestive heart failure), NYHA class I (Acute) Paroxysmal atrial fibrillation (Acute) GWENDOLYN (obstructive sleep apnea) (Acute) Obesity (BMI 30-39.9) (Acute) Hypersomnolence (Acute) Witnessed episode of apnea (Acute) Alcohol use (Acute) HTN (hypertension) (Acute) Past Medical History Medical History Paroxysmal atrial fibrillation GWENDOLYN (obstructive sleep apnea) Obesity (BMI 30-39.9) Sleep apnea Heart failure with reduced ejection fraction Atrial fibrillation HTN (hypertension) Cardiomyopathy Acute systolic heart failure Family History Family History Father No problems noted. Mother No problems noted. Family history of problems with anesthesia: No Surgical History Surgical History Hx of knee surgery History of Problems with Anesthesia: No Social History Social History Patient Tobacco Use Status: Current everyday Tobacco user Tobacco use type: Cigarette Cigarette Packs Per Day: 2 Cigarettes Per Day: 40.0 Years Smoked: 40 +/- Date Education Initiated: 06/25/23 Are you DNR?: No Advance Directives: No Advance Directives Information Provided: Yes Meds Allergies Allergy/AdvReac Type Severity Reaction Status Date / Time No Known Allergies Allergy Verified 09/30/22 10:40 Home Medications Medication Instructions Recorded Confirmed Last Taken Type lorazepam 0.5 mg tablet 0.5 mg PO TID PRN Anxiety 11/29/20 06/25/23 Unknown History paroxetine HCl 20 mg tablet 20 mg PO DAILY 04/25/22 06/25/23 Unknown History Exam Narrative Narrative: ECHO 04/2023 Conclusions: - 1. Technically limited study due to patient's body habitus 2. Normal LV ejection fraction 55-60% with mild LVH 3. At least moderate left atrial enlargement 4. Limited visualization of cardiac valves with cardiac valvular Dopplers within normal limits 5. Mildly dilated ascending aorta Assessment and Plan Assessment Anesthesia Assessment: Chart Reviewed Final Anesthetic Review Family History of Problems with Anesthesia: No History of Problems with Anesthesia: No Documented by User: Rosa Zapien MD 06/25/23 11:48 [facility] Past Medical History Medical History Paroxysmal atrial fibrillation GWENDOLYN (obstructive sleep apnea) Obesity (BMI 30-39.9) Sleep apnea Heart failure with reduced ejection fraction Atrial fibrillation HTN (hypertension) Cardiomyopathy Acute systolic heart failure Family History Family History Father No problems noted. Mother No problems noted. Surgical History Surgical History Hx of knee surgery Social History Social History Patient Tobacco Use Status: Current everyday Tobacco user Tobacco use type: Cigarette Cigarette Packs Per Day: 2 Cigarettes Per Day: 40.0 Years Smoked: 40 +/- Date Education Initiated: 06/25/23 Are you DNR?: No Advance Directives: No Advance Directives Information Provided: Yes Meds Allergies Allergy/AdvReac Type Severity Reaction Status Date / Time No Known Allergies Allergy Verified 09/30/22 10:40 Home Medications Medication Instructions Recorded Confirmed Last Taken Type lorazepam 0.5 mg tablet 0.5 mg PO TID PRN Anxiety 11/29/20 06/25/23 Unknown History paroxetine HCl 20 mg tablet 20 mg PO DAILY 04/25/22 06/25/23 Unknown History Exam Airway Mallampati Class: II TM Dist: >3cm Neck ROM: Full Partial: Upper and Lower Heart: rrr Lungs: cta Assessment and Plan Assessment Anesthesia Assessment: Anesthesia Plan Discussed Final Anesthetic Review NPO: Yes ASA Class: III Final Preanesthetic Review: No Changes in Pt Med Stat, Meds/Allgs Chart Reviewed and Consent Obtained/Reviewed Patient Risk: Intermediate Procedure Risk: Intermediate Anesthetic Plan Anesthetic Plan: GA Disposition: Standard PACU
[2023-06-25] VITALS (7 sets, daily range): BP systolic 118–166; BP diastolic 68–92; PULSE 69–86; RESP 16–20; TEMP 36.1–36.9; O2SAT 94–96; BMI 35.4
[2023-06-25] MEDS: Lactated Ringers 1,000 ML 50 ML IVCONT (11:08)
[2023-06-25] MEDS: Albuterol Sulfate (0.083%) 2.5 MG/3 ML VIAL.NEB INHALE (11:23)
--- NOTE | 2023-06-25 11:42 | MHC.SHP ---
Pre-Procedural Eval Section A - 24 Hr Update-Section A only Date of Service: 06/25/23 The patient is an INPATIENT: No Changes since office visit: Yes Changes in Medication and Yes Patient answered all questions; No Cold of Flu in the past 2 weeks and No New Medical Problems The patient has been examined within 24 hours of the surgical procedure. The History & Physical has been completed within 30 days and I have reviewed it.: Yes Section B - Complete if H&P > 30 days Chief Complaint: Other persistent atrial fibrillation Allergies: Allergies Allergy/AdvReac Type Severity Reaction Status Date / Time No Known Allergies Allergy Verified 09/30/22 10:40 Plan I have reviewed the history and physical and performed a pertinent physical examination on my patient. No changes have occurred unless specified. Time Spent With Patient Time: Total time managing care of this patient today ____ minutes.
--- NOTE | 2023-06-25 12:46 | ECG_ITS ---
Test Reason : s/p cardioversion Blood Pressure : / mmHG Vent. Rate : 073 BPM Atrial Rate : 000 BPM P-R Int : 000 ms QRS Dur : 120 ms QT Int : 420 ms P-R-T Axes : 000 061 051 degrees QTc Int : 462 ms Atrial fibrillation Abnormal ECG When compared with ECG of 04-OCT-2020 13:30, Atrial fibrillation has replaced Sinus rhythm Referred By: Bernardo Wilson Electronically Signed By:BERNARDO WILSON MD
--- NOTE | 2023-06-25 13:17 | HO.CARDIVERS ---
Cardioversion Procedure Note Cardioversion Date of Procedure: Today Ordering Provider: Dr. Wilson Performing Provider: Dr. Wilson Indication for Procedure: Persistent and recurrent atrial fibrillation Pre-Op Diagnosis: Same Post-Op Diagnosis: Unsuccessful conversion Performed with Transesophageal Echo: No History: See office note. Consent: Verbal and Written consent was obtained from the patient before starting and after confirming oral anticoagulation and flecainide use. The patient was made aware of the risk of synchronized cardioversion including benefits and alternatives. Procedure: After consent obtained, cardioversion pads were attached in anteroposterior configuration and the patient was sedated by the anesthesia team. Once adequate sedation achieved, patient was delivered 200 joules of biphasic synchronized energy in anteroposterior configuration x2. Complications: None Impression: Unsuccessful cardioversion Recommendations: 1. 12 lead EKG 2. Discontinue flecainide therapy as it is ineffective 3. Will start on amiodarone loading in few days followed by synchronized cardioversion 4. Continue full oral anticoagulation
== END 2023-06-25 13:32 | disposition home or self-care (01) ==
PROVIDERS: PCP Internal Medicine; Visit Provider Internal Medicine Cardiovascular Disease
PROC: 5A2204Z Restoration of Cardiac Rhythm, Single (ICD-10-PCS; principal; 2023-06-25 12:00)
DX: I48.19 Other persistent atrial fibrillation (principal); I11.0 Hypertensive heart disease with heart failure; I50.21 Acute systolic (congestive) heart failure; I42.9 Cardiomyopathy, unspecified; G47.33 Obstructive sleep apnea (adult) (pediatric); E66.9 Obesity, unspecified; Z68.36 Body mass index [BMI] 36.0-36.9, adult; F17.210 Nicotine dependence, cigarettes, uncomplicated; Z79.01 Long term (current) use of anticoagulants; Z79.899 Other long term (current) drug therapy; Z99.89 Dependence on other enabling machines and devices
CPT/HCPCS: 92960; 93005; 94640; J2704

== ENCOUNTER → 2023-06-25 10:26 | Outpatient (BNV) | payer OTHER, SELFPAY | PROVIDERS: PCP Internal Medicine; Visit Provider Internal Medicine Cardiovascular Disease | DX: I48.19 Other persistent atrial fibrillation (principal) | CPT/HCPCS: 92960; 93010 ==

== ENCOUNTER 2023-07-16 08:31 | Day surgery (SDC) | payer OTHER, SELFPAY ==
--- NOTE | 2023-07-15 09:35 | HO.ANESPROP2 ---
HPI - Anesthesia Eval Consult details Narrative: 57yo M for Cardioversion Unsuccessful cardioversion 06/25/23 with RADHA Werner RADHA Active Problems Active Problems: All Active Problems Persistent atrial fibrillation (Acute) CHF (congestive heart failure), NYHA class I (Acute) Paroxysmal atrial fibrillation (Acute) GWENDOLYN (obstructive sleep apnea) (Acute) Obesity (BMI 30-39.9) (Acute) Hypersomnolence (Acute) Witnessed episode of apnea (Acute) Alcohol use (Acute) HTN (hypertension) (Acute) Past Medical History Medical History (Updated 07/16/23 @ 09:21 by Marie Cardona, RN) History of cardioversion Paroxysmal atrial fibrillation GWENDOLYN (obstructive sleep apnea) Obesity (BMI 30-39.9) Sleep apnea Heart failure with reduced ejection fraction Atrial fibrillation HTN (hypertension) Cardiomyopathy Acute systolic heart failure Family History Family History Father No problems noted. Mother No problems noted. Family history of problems with anesthesia: No Surgical History Surgical History Hx of knee surgery History of Problems with Anesthesia: No Social History Social History Patient Tobacco Use Status: Current everyday Tobacco user Tobacco use type: Cigarette Cigarette Packs Per Day: 2 Cigarettes Per Day: 25 Years Smoked: 40 +/- Meds Allergies Allergy/AdvReac Type Severity Reaction Status Date / Time No Known Allergies Allergy Verified 07/16/23 09:21 Home Medications ?Medication ?Instructions ?Recorded ?Confirmed ?Last Taken ?Type lorazepam 0.5 mg tablet 0.5 mg PO TID PRN Anxiety 11/29/20 07/16/23 Unknown History paroxetine HCl 20 mg tablet 20 mg PO DAILY 04/25/22 07/16/23 Unknown History Assessment and Plan Assessment Anesthesia Assessment: Chart Reviewed Final Anesthetic Review Family History of Problems with Anesthesia: No History of Problems with Anesthesia: No
--- NOTE | 2023-07-16 08:47 | P.CONAN_ITS ---
[facility] Active Problems Active Problems: All Active Problems Persistent atrial fibrillation (Acute) CHF (congestive heart failure), NYHA class I (Acute) Paroxysmal atrial fibrillation (Acute) GWENDOLYN (obstructive sleep apnea) (Acute) Obesity (BMI 30-39.9) (Acute) Hypersomnolence (Acute) Witnessed episode of apnea (Acute) Alcohol use (Acute) HTN (hypertension) (Acute) Past Medical History Medical History Paroxysmal atrial fibrillation GWENDOLYN (obstructive sleep apnea) Obesity (BMI 30-39.9) Sleep apnea Heart failure with reduced ejection fraction Atrial fibrillation HTN (hypertension) Cardiomyopathy Acute systolic heart failure Family History Family History Father No problems noted. Mother No problems noted. Family history of problems with anesthesia: No Surgical History Surgical History Hx of knee surgery History of Problems with Anesthesia: No Social History Social History Patient Tobacco Use Status: Current everyday Tobacco user Tobacco use type: Cigarette Cigarette Packs Per Day: 2 Cigarettes Per Day: 40.0 Years Smoked: 40 +/- Advance Directives: No Advance Directives Information Provided: Yes Meds Allergies Allergy/AdvReac Type Severity Reaction Status Date / Time No Known Allergies Allergy Verified 09/30/22 10:40 Home Medications ?Medication ?Instructions ?Recorded ?Confirmed ?Last Taken ?Type lorazepam 0.5 mg tablet 0.5 mg PO TID PRN Anxiety 11/29/20 06/25/23 Unknown History paroxetine HCl 20 mg tablet 20 mg PO DAILY 04/25/22 06/25/23 Unknown History Exam Airway Mallampati Class: III TM Dist: >3cm Neck ROM: Full Heart: Irreg. Lungs: CTA Assessment and Plan Assessment Anesthesia Assessment: Anesthesia Plan Discussed Final Anesthetic Review Family History of Problems with Anesthesia: No History of Problems with Anesthesia: No ASA Class: III Final Preanesthetic Review: Meds/Allgs Chart Reviewed, Consent Obtained/Reviewed and Anes Risks/Benef Reviewed Patient Risk: Intermediate Procedure Risk: Intermediate Anesthetic Plan Anesthetic Plan: GA Disposition: Standard PACU
--- NOTE | 2023-07-16 08:50 | P.CONAN_ITS ---
[facility], [facility] Active Problems Active Problems: All Active Problems (Updated 06/16/23 @ 09:44 by Bernardo Wilson MD) Persistent atrial fibrillation (Acute) CHF (congestive heart failure), NYHA class I (Acute) Paroxysmal atrial fibrillation (Acute) GWENDOLYN (obstructive sleep apnea) (Acute) Obesity (BMI 30-39.9) (Acute) Hypersomnolence (Acute) Witnessed episode of apnea (Acute) Alcohol use (Acute) HTN (hypertension) (Acute) Past Medical History Medical History Paroxysmal atrial fibrillation GWENDOLYN (obstructive sleep apnea) Obesity (BMI 30-39.9) Sleep apnea Heart failure with reduced ejection fraction Atrial fibrillation HTN (hypertension) Cardiomyopathy Acute systolic heart failure Family History Family History Father No problems noted. Mother No problems noted. Family history of problems with anesthesia: No Surgical History Surgical History Hx of knee surgery History of Problems with Anesthesia: No Social History Social History Patient Tobacco Use Status: Current everyday Tobacco user Tobacco use type: Cigarette Cigarette Packs Per Day: 2 Cigarettes Per Day: 40.0 Years Smoked: 40 +/- Advance Directives: No Advance Directives Information Provided: Yes Meds Allergies Allergy/AdvReac Type Severity Reaction Status Date / Time No Known Allergies Allergy Verified 09/30/22 10:40 Home Medications ?Medication ?Instructions ?Recorded ?Confirmed ?Last Taken ?Type lorazepam 0.5 mg tablet 0.5 mg PO TID PRN Anxiety 11/29/20 06/25/23 Unknown History paroxetine HCl 20 mg tablet 20 mg PO DAILY 04/25/22 06/25/23 Unknown History Exam Airway Mallampati Class: IV TM Dist: >3cm Neck ROM: Full Heart: irreg Lungs: CTA Assessment and Plan Assessment Anesthesia Assessment: Anesthesia Plan Discussed and Smoking Cess. Discussed Final Anesthetic Review Family History of Problems with Anesthesia: No History of Problems with Anesthesia: No NPO: Yes ASA Class: III Final Preanesthetic Review: Meds/Allgs Chart Reviewed, Consent Obtained/Reviewed and Anes Risks/Benef Reviewed Patient Risk: Intermediate Procedure Risk: Intermediate Anesthetic Plan Anesthetic Plan: GA Disposition: Standard PACU
[2023-07-16 09:23] VITALS: BMI 38.8
[2023-07-16 09:29] VITALS: BP 117/65; PULSE 73; RESP 17; TEMP 36.9; O2SAT 96
[2023-07-16] MEDS: Lactated Ringers 1,000 ML 50 ML IVCONT (09:35)
--- NOTE | 2023-07-16 10:13 | MHC.SHP ---
Pre-Procedural Eval Section A - 24 Hr Update-Section A only Date of Service: 07/16/23 The patient is an INPATIENT: No Changes since office visit: Yes Changes in Medication and Yes Patient answered all questions; No Cold of Flu in the past 2 weeks and No New Medical Problems The patient has been examined within 24 hours of the surgical procedure. The History & Physical has been completed within 30 days and I have reviewed it.: Yes Section B - Complete if H&P > 30 days Chief Complaint: Other persistent atrial fibrillation Allergies: Allergies Allergy/AdvReac Type Severity Reaction Status Date / Time No Known Allergies Allergy Verified 07/16/23 09:21 Plan I have reviewed the history and physical and performed a pertinent physical examination on my patient. No changes have occurred unless specified. Time Spent With Patient Time: Total time managing care of this patient today ____ minutes.
[2023-07-16 10:14] VITALS: BP 126/62; PULSE 83; RESP 16; TEMP 36.1; O2SAT 97
--- NOTE | 2023-07-16 10:18 | ECG_ITS ---
Test Reason : s/p cardioversion Blood Pressure : / mmHG Vent. Rate : 062 BPM Atrial Rate : 062 BPM P-R Int : 212 ms QRS Dur : 110 ms QT Int : 462 ms P-R-T Axes : 017 065 059 degrees QTc Int : 468 ms Sinus rhythm with 1st degree A-V block Otherwise normal ECG When compared with ECG of 25-JUN-2023 12:48, Sinus rhythm has replaced Atrial fibrillation Referred By: Bernardo Wilson Electronically Signed By:BERNARDO WILSON MD
[2023-07-16 10:19] VITALS: BP 141/72; PULSE 72; RESP 16; O2SAT 98
[2023-07-16 10:24] VITALS: BP 111/68; PULSE 68; RESP 16; O2SAT 98
[2023-07-16 10:29] VITALS: BP 126/62; PULSE 63; RESP 16; O2SAT 98
--- NOTE | 2023-07-16 10:42 | HO.POSTANES ---
Post Anesthesia Evaluation Post Anesthesia Evaluation Date of Service: 07/16/23 Vital Signs: Vital Signs Temp Pulse Resp BP Pulse Ox O2 Del Method O2 Flow Rate 07/16/23 10:29 63 16 126/62 98 Nasal Cannula with ETCO2 2 07/16/23 10:24 68 16 111/68 98 Nasal Cannula with ETCO2 2 07/16/23 10:19 72 16 141/72 H 98 Nasal Cannula with ETCO2 2 07/16/23 10:14 97 F 83 16 126/62 97 Nasal Cannula with ETCO2 2 07/16/23 09:29 98.5 F 73 17 117/65 96 Room Air FiO2 07/16/23 10:29 33 07/16/23 10:24 32 07/16/23 10:19 07/16/23 10:14 07/16/23 09:29 Anesthesia: General Mental Status: Awake Pain Control: Satisfactory Nausea/Vomiting: None Hydration: Adequate Anesthesia-Related Issues: No Anes. Related Issues
[2023-07-16 10:44] VITALS: BP 137/80; PULSE 64; RESP 20; TEMP 36.8; O2SAT 98
--- NOTE | 2023-07-16 10:46 | HO.CARDIVERS ---
Cardioversion Procedure Note Cardioversion Date of Procedure: Today Ordering Provider: Bernardo Wilson Performing Provider: Bernardo Wilson Indication for Procedure: Recurrent persistent atrial fibrillation with prior history of heart failure Pre-Op Diagnosis: Same Performed with Transesophageal Echo: No History: See my office note Consent: Verbal and Written consent was obtained from the patient before starting after confirming oral anticoagulation use and amiodarone use. The patient was made aware of the risk of synchronized cardioversion including benefits and alternatives Procedure: After consent obtained, cardioversion pads were attached in anteroposterior configuration and the patient was sedated by the anesthesia team. Once adequate sedation achieved, patient was delivered 200 joules of biphasic synchronized energy in anteroposterior configuration Complications: None Impression: Successful conversion to sinus rhythm Recommendations: 1. 12 lead EKG 2. Continue amiodarone and oral anticoagulation therapy 3. Follow up in the clinic after Holter monitor
== END 2023-07-16 12:01 | disposition home or self-care (01) ==
PROVIDERS: PCP Internal Medicine; Visit Provider Internal Medicine Cardiovascular Disease
PROC: 5A2204Z Restoration of Cardiac Rhythm, Single (ICD-10-PCS; principal; 2023-07-16 10:00)
DX: I48.19 Other persistent atrial fibrillation (principal); I11.0 Hypertensive heart disease with heart failure; I50.21 Acute systolic (congestive) heart failure; I42.9 Cardiomyopathy, unspecified; E66.9 Obesity, unspecified; Z68.36 Body mass index [BMI] 36.0-36.9, adult; G47.33 Obstructive sleep apnea (adult) (pediatric); Z79.01 Long term (current) use of anticoagulants; Z79.899 Other long term (current) drug therapy; Z99.89 Dependence on other enabling machines and devices; F17.210 Nicotine dependence, cigarettes, uncomplicated
CPT/HCPCS: 92960; 93005; J0330; J2704

== ENCOUNTER → 2023-07-16 08:31 | Outpatient (BNV) | payer OTHER, SELFPAY | PROVIDERS: PCP Internal Medicine; Visit Provider Internal Medicine Cardiovascular Disease | DX: I48.19 Other persistent atrial fibrillation (principal) | CPT/HCPCS: 92960; 93010 ==

== ENCOUNTER 2023-08-13 09:46 | Outpatient (AMB) | payer OTHER, SELFPAY ==
--- NOTE | 2023-08-13 09:47 | MHC.OFFVIS ---
Vital Signs 08/13/23 09:49 Height 6 ft 4 in Weight 310 lb 13.628 oz BMI 37.8 BP 136/82 Blood Pressure Location Lt brachial Position Sitting Pulse 65 Intake Visit Reasons: 1 mth f/up CVR Intake Note: follow-up post cardioversion with ekg feeling good Radar Operator Required: No Allergies No Known Allergies Allergy (Verified 07/16/23 09:21) Medication List - Last Reconciled 08/13/23 by Bernardo Wilson MD amiodarone 200 mg PO DAILY apixaban (Eliquis) 5 mg PO BID carvedilol 12.5 mg PO BID lorazepam 0.5 mg PO TID PRN paroxetine HCl 20 mg PO DAILY sacubitril-valsartan 97-103 mg (Entresto) 1 tab PO BID 90 days HPI Comments Details: William comes for follow-up. He recently underwent cardioversion after amiodarone loading. Converted to sinus rhythm however comes today is back in atrial fibrillation. He said he did not notice any change in his symptoms or functional capacity being in normal rhythm versus being in atrial fibrillation today. He has been taking all his medications including amiodarone regularly. Denies any heart failure symptoms. Denies any worsening shortness of breath, orthopnea, PND. Denies any prolonged palpitation irregular heartbeat. No lightheadedness, syncope. No bleeding issues or neurologic events. [facility] Medical History (Updated 08/13/23 @ 10:11 by Bernardo Wilson MD) Paroxysmal atrial fibrillation History of cardioversion GWENDOLYN (obstructive sleep apnea) Obesity (BMI 30-39.9) Sleep apnea Heart failure with reduced ejection fraction Atrial fibrillation HTN (hypertension) Cardiomyopathy Acute systolic heart failure Surgical History Hx of knee surgery Family History Father No problems noted. Mother No problems noted. Social History Patient Tobacco Use Status: Current everyday Tobacco user Tobacco use type: Cigarette Cigarette Packs Per Day: 2 Cigarettes Per Day: 25 Years Smoked: 40 +/- Review of Systems Const Denies chills, Denies fatigue, Denies fever(s), Denies frequent falls, Denies weakness, Denies weight gain and Denies weight loss ENT Denies dizziness Card Denies chest pain, Denies leg edema, Denies lightheadedness, Denies palpitations, Denies dyspnea, Denies dyspnea on exertion, Denies orthopnea and Denies other (loss of consciousness) Resp Denies cough, Denies dyspnea and Denies dyspnea on exertion GI Denies hematochezia and Denies change in stool character Musc Denies abnormal gait, Denies muscle weakness, Denies numbness, Denies radiating pain into limb and Denies tingling Neuro Denies abnormal gait, Denies dizziness, Denies frequent falls, Denies numbness, Denies tingling and Denies weakness Endo Denies fatigue and Denies palpitations Physical Exam Vital Signs: Last Vital Signs Pulse 65 08/13/23 09:49 BP 136/82 08/13/23 09:49 BMI result Body Mass Index 37.8 Const General: cooperative, comfortable, no acute distress, alert and awake Nutritional Appearance: obese Orientation/consciousness: patient oriented x3 Limitations: no limitations Neck Neck: Yes trachea midline, Yes supple and Yes no JVD Resp Effort & Inspection: normal respiratory effort Auscultation: clear to auscultation bilaterally Cardio Jugular venous distension: no JVD Palpation: normal PMI Rhythm: abnormal rhythm irregularly irregular Heart sounds: S1 normal heart sound present, S2 normal heart sound present, no click, no gallops, no murmurs and no rubs Peripheral pulses: Peripheral pulses 2+ throughout GI Inspection: Yes obesity Auscultation: normal bowel sounds Skin General skin exam: no rashes or lesions noted Neuro General: patient oriented x3 and no focal motor deficits Extrem General: Yes no clubbing, cyanosis or edema Psych Appearance: grossly normal Office Procedures EKG Details: EKG shows atrial fibrillation 65 beats per minute [id number], Complete Assessment & Plan Assessment & Plan (1) Persistent atrial fibrillation: Code(s): I48.19 - Other persistent atrial fibrillation Category: Medical Plan: Resistant and persistent recurrent atrial fibrillation related to structural left atrial changes from longstanding hypertension sleep apnea. Has failed now rhythm control approach including use of amiodarone loading and cardioversion. He has no known symptoms at this point time with no change in his functional capacity no signs of heart failure. Discussed with him that atrial fibrillation does increase his risk compared to being in normal sinus rhythm of developing future cardiovascular issues including heart failure. He understands agrees. Although given that he has failure to amiodarone therapy unlikely to maintain rhythm in the joint terminal attack controller. Pathophysiology of atrial fibrillation was discussed again. At this point time given that amiodarone is ineffective will discontinue the same to reduce long-term toxicity effect. Will meanwhile increase his carvedilol 25 mg b.i.d. to pursue adequate rate control approach. Continue CPAP therapy. Continue full oral anticoagulation with Eliquis 5 mg b.i.d.. Importance of oral anticoagulation therapy was discussed. Avoidance of alcohol was discussed. (2) CHF (congestive heart failure), NYHA class I: Code(s): I50.9 - Heart failure, unspecified Category: Medical Plan: Prior history of severe cardiomyopathy and congestive heart failure suspected to be related to atrial fibrillation although his LV systolic function heart failure seem to be preserved despite recurrent atrial fibrillation. Probably related to uncontrolled blood pressure question alcohol use as well as uncontrolled CPAP therapy. His LV systolic function has now improved on current neurohormonal modulation with carvedilol and Entresto. Continue both. Continue aggressively CPAP therapy. Avoidance of alcohol was discussed. Continue monitor blood pressure at home maintain a log. He has clinically not in heart failure at this point time and does not require any diuretic therapy. Signs and symptoms of heart failure were discussed. Will follow up in the clinic in 3 months time, sooner p.r.n.. Thank you for allowing me to partake in his care Medications: New carvedilol (Coreg) must administer with a meal/food 25 mg PO BID 90 days 180 tabs 1RF Discontinued carvedilol Discontinued Reason: Doctor's Order 12.5 mg PO BID 180 tabs 3RF I42.9 - Cardiomyopathy, unspecified amiodarone Discontinued Reason: Doctor's Order 200 mg PO DAILY 30 tabs 1RF Coding Level of Care Code Est Pt Level 4 (87319) Diagnoses Persistent atrial fibrillation I48.19 CHF (congestive heart failure), NYHA class I I50.9 CPT Codes EKG - CPT: 06883-[id number], Complete ([id number])
[2023-08-13 09:49] VITALS: BP 136/82; PULSE 65; BMI 37.8
== END 2023-08-13 10:11 | disposition home or self-care (01) ==
PROVIDERS: PCP Internal Medicine; Visit Provider Internal Medicine Cardiovascular Disease
DX: I48.19 Other persistent atrial fibrillation (principal); I50.9 Heart failure, unspecified
CPT/HCPCS: 93010; 99214

== ENCOUNTER → 2023-08-13 09:46 | Outpatient (BNVA) | payer OTHER, SELFPAY | PROVIDERS: PCP Internal Medicine; Visit Provider Internal Medicine Cardiovascular Disease | DX: I48.19 Other persistent atrial fibrillation (principal); I50.9 Heart failure, unspecified; Z79.01 Long term (current) use of anticoagulants; Z79.899 Other long term (current) drug therapy | CPT/HCPCS: 93005 ==

== ENCOUNTER 2023-11-13 09:11 | Outpatient (AMB) | payer OTHER, SELFPAY ==
[2023-11-13 09:21] VITALS: BP 124/68; PULSE 90; BMI 38.4
--- NOTE | 2023-11-13 09:21 | MHC.OFFVIS ---
Vital Signs 11/13/23 09:21 Height 6 ft 4 in Weight 315 lb 4.176 oz BMI 38.4 BP 124/68 Blood Pressure Location Lt brachial Position Sitting Pulse 90 Pulse Source Monitor Intake Visit Reasons: 3 mth w/ ekg Allergies No Known Allergies Allergy (Verified 07/16/23 09:21) Medication List - Last Reconciled 11/13/23 by Bernardo Wilson MD apixaban (Eliquis) 5 mg PO BID carvedilol (Coreg) 25 mg PO BID 90 days lorazepam 0.5 mg PO TID PRN paroxetine HCl 20 mg PO DAILY sacubitril-valsartan 97-103 mg (Entresto) 1 tab PO BID 90 days HPI Comments Details: William comes for follow-up after 3 months. This is after decision for continue rate control approach. He says he notices no change in his lifestyle. He does not exercise much but says he gets in the pool for 3-4 hours without getting tired or short of breath. He denies any orthopnea, PND, leg edema, abdominal distension. Uses CPAP regularly. No bleeding issues or neurologic events. Takes his medication regularly. Denies any palpitations. No bleeding issues or neurologic events. [facility] Medical History Paroxysmal atrial fibrillation History of cardioversion GWENDOLYN (obstructive sleep apnea) Obesity (BMI 30-39.9) Sleep apnea Heart failure with reduced ejection fraction Atrial fibrillation HTN (hypertension) Cardiomyopathy Acute systolic heart failure Surgical History Hx of knee surgery Family History Father No problems noted. Mother No problems noted. Social History Patient Tobacco Use Status: Current everyday Tobacco user Tobacco use type: Cigarette Cigarette Packs Per Day: 2 Cigarettes Per Day: 25 Years Smoked: 40 +/- Review of Systems Const Denies weakness ENT Denies dizziness Card Denies chest pain, Denies chest pain with activity, Denies syncope, Denies rapid heart rate, Denies pedal edema, Denies edema, Denies leg edema, Denies lightheadedness, Denies palpitations, Denies dyspnea, Denies dyspnea on exertion and Denies orthopnea Resp Denies cough, Denies dyspnea and Denies dyspnea on exertion GI Denies hematochezia and Denies change in stool character Musc Denies abnormal gait, Denies muscle cramps, Denies muscle weakness, Denies numbness, Denies radiating pain into limb and Denies tingling Neuro Denies abnormal gait, Denies dizziness, Denies syncope, Denies numbness, Denies tingling and Denies weakness Endo Denies palpitations Physical Exam Vital Signs: Last Vital Signs Pulse 90 11/13/23 09:21 BP 124/68 11/13/23 09:21 BMI result Body Mass Index 38.4 Const General: cooperative, comfortable, no acute distress, alert and awake Nutritional Appearance: obese Orientation/consciousness: patient oriented x3 Limitations: no limitations Neck Neck: Yes trachea midline, Yes supple and Yes no JVD Resp Effort & Inspection: normal respiratory effort Auscultation: clear to auscultation bilaterally Cardio Jugular venous distension: no JVD Palpation: normal PMI Rate: regular rate Rhythm: abnormal rhythm irregularly irregular Heart sounds: S1 normal heart sound present, S2 normal heart sound present, no click, no gallops, no murmurs and no rubs Peripheral pulses: Peripheral pulses 2+ throughout GI Inspection: Yes obesity Auscultation: normal bowel sounds Skin General skin exam: no rashes or lesions noted Neuro General: patient oriented x3 and no focal motor deficits Extrem General: Yes no clubbing, cyanosis or edema Psych Appearance: grossly normal Office Procedures EKG Details: EKG shows atrial fibrillation with prolonged QT otherwise controlled rate [id number], Complete Assessment & Plan Assessment & Plan (1) Persistent atrial fibrillation: Code(s): I48.19 - Other persistent atrial fibrillation Category: Medical Plan: Persistent and rate control atrial fibrillation, recent in the last 6 months with no increased symptoms with rate control on current neurohormonal modulation. Has no signs of cardiac decompensation. He has resistant atrial fibrillation despite cardioversion amiodarone therapy most likely due to advanced structural heart disease given his longstanding uncontrolled hypertension as well as sleep apnea as well as alcohol use. At this point time we discussed about management again in details. Will continue pursue rate control approach at this point in time. Advised to call me with any worsening heart failure symptoms although treatment options would be limited at this point time. Continue full oral anticoagulation, currently on Eliquis 5 mg b.i.d.. Semi annual renal function test should be pursued. Continue CPAP therapy. Reduction and cessation of alcohol use was discussed. Continue aggressive blood pressure control. Encouraged to participate in physical activity and weight loss program. (2) CHF (congestive heart failure), NYHA class I: Code(s): I50.9 - Heart failure, unspecified Category: Medical Plan: Heart failure with significantly reduced EF in the past in the setting of atrial fibrillation and untreated sleep apnea. LV systolic function has improved with maintenance rhythm as well as treatment of sleep apnea and control of his blood pressure and current neurohormonal modulation. Clinically euvolemic and well compensated at this point time without any diuretic dose. Continue monitor for signs and symptoms of heart failure. These were discussed. Continue neurohormonal modulation with carvedilol and Entresto therapy. Advise low-salt diet. Advised to continue CPAP therapy. Encouraged to increase activity level and participate in weight loss program. Follow up in the clinic in 6 months time after an echocardiogram. Thank you for allowing me to partake in his care Orders: Orders CA echo transthoracic complete 6 Months I50.9 - Heart failure, unspecified ECG 3 day holter monitor 6 Months I48.19 - Other persistent atrial fibrillation Coding Level of Care Code Est Pt Level 4 (84068) Diagnoses Persistent atrial fibrillation I48.19 CHF (congestive heart failure), NYHA class I I50.9 CPT Codes EKG - CPT: 84692-[id number], Complete ([id number])
== END 2023-11-13 09:35 | disposition home or self-care (01) ==
PROVIDERS: PCP Internal Medicine; Visit Provider Internal Medicine Cardiovascular Disease
DX: I48.19 Other persistent atrial fibrillation (principal); I50.9 Heart failure, unspecified
CPT/HCPCS: 93010; 99214

== ENCOUNTER → 2023-11-13 09:11 | Outpatient (BNVA) | payer OTHER, SELFPAY | PROVIDERS: PCP Internal Medicine; Visit Provider Internal Medicine Cardiovascular Disease | DX: I48.19 Other persistent atrial fibrillation (principal); I50.9 Heart failure, unspecified; Z79.01 Long term (current) use of anticoagulants; Z79.899 Other long term (current) drug therapy | CPT/HCPCS: 93005 ==

== ENCOUNTER 2024-05-12 10:08 | Outpatient (AMB) | payer OTHER, SELFPAY ==
--- NOTE | 2024-05-12 10:09 | A.OFFVIS_ITS ---
Vital Signs 05/12/24 10:10 Height 6 ft 4 in Weight 330 lb 11.094 oz BMI 40.2 BP 138/78 Blood Pressure Location Lt brachial Position Sitting Pulse 88 Pulse Source Pulse Oximeter Intake Visit Reasons: 6m follow up Allergies No Known Allergies Allergy (Verified 07/16/23 09:21) Medication List - Last Reconciled 05/12/24 by Bernardo Wilson MD apixaban (Eliquis) 5 mg PO BID carvedilol (Coreg) 25 mg PO BID 90 days lorazepam 0.5 mg PO TID PRN paroxetine HCl 20 mg PO DAILY sacubitril-valsartan 97-103 mg (Entresto) 1 tab PO BID 90 days HPI Comments Details: William comes for follow-up. He said he has been doing extremely well from cardiac perspective. Denies any heart failure symptoms. Denies any orthopnea, PND, leg edema. Denies any weight gain although does not monitor his weight on a regular basis. He says CPAP has done wonders for him and he feels a lot more energy and sleeps well. He denies any prolonged palpitation irregular heartbeat. Denies any lightheadedness, syncope. No bleeding issues or neurologic events. Unfortunately continues to use alcohol on a regular basis. Has not been able to lose much weight. Remains active with his day-to-day activity. [facility] Medical History Paroxysmal atrial fibrillation History of cardioversion GWENDOLYN (obstructive sleep apnea) Obesity (BMI 30-39.9) Sleep apnea Heart failure with reduced ejection fraction Atrial fibrillation HTN (hypertension) Cardiomyopathy Acute systolic heart failure Surgical History Hx of knee surgery Family History Father No problems noted. Mother No problems noted. Social History Patient Tobacco Use Status: Current everyday Tobacco user Tobacco use type: Cigarette Cigarette Packs Per Day: 2 Cigarettes Per Day: 25 Years Smoked: 40 +/- Review of Systems Const Denies weakness ENT Denies dizziness Card Denies chest pain, Denies chest pain with activity, Denies syncope, Denies rapid heart rate, Denies pedal edema, Denies edema, Denies leg edema, Denies lightheadedness, Denies palpitations, Denies dyspnea, Denies dyspnea on exertion and Denies orthopnea Resp Denies cough, Denies dyspnea and Denies dyspnea on exertion GI Denies hematochezia and Denies change in stool character Musc Denies abnormal gait, Denies muscle cramps, Denies muscle weakness, Denies numbness, Denies radiating pain into limb and Denies tingling Neuro Denies abnormal gait, Denies dizziness, Denies syncope, Denies numbness, Denies tingling and Denies weakness Endo Denies palpitations Physical Exam Vital Signs: Last Vital Signs Pulse 88 05/12/24 10:10 BP 138/78 05/12/24 10:10 BMI result Body Mass Index 40.2 Const General: cooperative, comfortable, no acute distress, alert and awake Nutritional Appearance: obese Orientation/consciousness: patient oriented x3 Limitations: no limitations Neck Neck: Yes trachea midline, Yes supple and Yes no JVD Resp Effort & Inspection: normal respiratory effort Auscultation: clear to auscultation bilaterally Cardio Jugular venous distension: no JVD Palpation: normal PMI Rate: regular rate Rhythm: abnormal rhythm irregularly irregular Heart sounds: S1 normal heart sound present, S2 normal heart sound present, no click, no gallops, no murmurs and no rubs Peripheral pulses: Peripheral pulses 2+ throughout GI Inspection: Yes obesity Auscultation: normal bowel sounds Skin General skin exam: no rashes or lesions noted Neuro General: patient oriented x3 and no focal motor deficits Extrem General: Yes no clubbing, cyanosis or edema Psych Appearance: grossly normal Assessment & Plan Assessment & Plan (1) Persistent atrial fibrillation: Code(s): I48.19 - Other persistent atrial fibrillation Category: Medical Plan: Persistent rate control atrial fibrillation with normalized LV ejection fraction and no significant progressive heart failure syndrome. He does have left atrial enlargement and most likely longstanding sleep apnea and/or untreated hypertension and/or obesity as well as alcohol use most likely promoted atrial fibrillation in his case. Although we discussed given his age pursuing rhythm control would be more beneficial to him. Newer ablation techniques may make this more feasible. This was discussed. Discussed about a consultation with electrophysiology to discuss this. He is currently not interested but will think about it and let me know. We discussed about time sensitive nature of pursuing ablation sooner rather than later. He understands agrees. Continue current rate control approach with carvedilol. Continue full oral anticoagulation, currently on Eliquis 5 mg b.i.d.. (2) CHF (congestive heart failure), NYHA class I: Code(s): I50.9 - Heart failure, unspecified Category: Medical Plan: CHF syndrome which has significantly improved since rate control as well as treatment of sleep apnea with normalized LV ejection fraction by last echocardiogram. Also improvement in blood pressure control has helped. He is currently not on diuretic regimen. CHF management discussed. I think he would benefit more in the long run with rhythm management as well. Cessation of alcohol use was discussed. Follow-up echocardiogram near future. Continue current neurohormonal modulation with carvedilol as well as Entresto therapy. Encouraged to maintain activity level and participate in weight loss program. Advised to call me with worsening symptoms. (3) Ascending aorta enlargement: Code(s): I77.89 - Other specified disorders of arteries and arterioles Category: Medical Plan: Mild ascending aortic enlargement. Currently doing well. No interventions required. Continue aggressive blood pressure control which is currently well optimized. Will follow up in the clinic in 6 months time, sooner p.r.n.. Thank you for allowing me to partake in his care Coding Level of Care Code Est Pt Level 4 (33322) Complex EM visit Add On G2211 Diagnoses Persistent atrial fibrillation I48.19 CHF (congestive heart failure), NYHA class I I50.9 Ascending aorta enlargement I77.89
[2024-05-12 10:10] VITALS: BP 138/78; PULSE 88; BMI 40.2
== END 2024-05-12 10:24 | disposition home or self-care (01) ==
PROVIDERS: PCP Internal Medicine; Visit Provider Internal Medicine Cardiovascular Disease
DX: I48.19 Other persistent atrial fibrillation (principal); I50.9 Heart failure, unspecified; I77.89 Other specified disorders of arteries and arterioles
CPT/HCPCS: 99214

== ENCOUNTER → 2024-05-12 10:08 | Outpatient (BNVA) | payer OTHER, SELFPAY | PROVIDERS: PCP Internal Medicine; Visit Provider Internal Medicine Cardiovascular Disease ==

== ENCOUNTER → 2024-07-05 10:55 | Outpatient (REF) | payer OTHER, SELFPAY ==
--- NOTE | 2024-07-05 10:59 | CA_ITS ---
Transthoracic Echocardiogram Patient (Last, First, Middle): Adria Castro, Gender: Male Date of : 1965 Age: 58 Procedure Date: 07/05/2024 Procedure Type: Transthoracic Echocardiogram Location: OP Height: 193. cm Weight: 136.99 kg BSA: 2.64 m2 Heart Rate: 84 bpm BP: 115 / 70 mmHg [employer] Clerk: DB Referring MD: Bernardo Wilson MD Die Designer: Bernardo Wilson MD Symptoms: I77.89 - Other specified disorders of arteries and arterioles Study Quality: Adequate ECG Rhythm: Atrial Fibrillation Conclusions: - 1. Mildly dilated left ventricle with moderate left ventricular hypertrophy with preserved LV ejection fraction 55-60% 2. Severely dilated left atrium and moderately dilated right atrium 3. Cardiac valvular Dopplers within normal limits 4. Mildly dilated ascending aorta 5. Normal RV systolic pressure Findings Procedure Information Contrast agent, definity, is being given per protocol without apparent complications. The quality of the study was technically difficult. The study quality is limited by patients body habitus. Left Ventricle Mildly increased left ventricular cavity size. There is moderately increased left ventricular wall thickness. The left ventricular systolic function is normal. The visually estimated ejection fraction is between 55-60%. Diastolic function is indeterminate on the basis of available data. Right Ventricle The right ventricle was not well visualized. There is normal right ventricular systolic function. Atria The left atrium is severely dilated. Interatrial shunt cannot be excluded. The right atrium is moderately dilated. Aortic Valve There is mild calcification of the aortic valve. There is no aortic valve stenosis. There is no aortic valve regurgitation. Mitral Valve There is mild anterior and posterior mitral leaflet thickening. There is mild mitral annular calcification. There is trace mitral valve regurgitation. There is no mitral valve stenosis. Pulmonic Valve The pulmonic valve was not well visualized. Tricuspid Valve Likely normal tricuspid valve structure and function. There is mild tricuspid valve regurgitation. The right ventricular systolic pressure is normal. The right ventricular systolic pressure is 29 mmHg. Normal right atrial pressure. There is no evidence of pulmonary hypertension. Great Vessels The aorta was not well visualized. The pulmonary artery was not well visualized. There is mild dilatation of the ascending aorta measuring 4.20 cm. Venous The inferior vena cava is normal in size and collapses greater than 50% with inspiration. Pericardium/Pleural The pericardium was not well visualized. Prior Study Comparison No significant change compared to prior study dated: 05/14/2023. Measurements 2D Linear Measurements IVSd: 1.46 0.6-0.9/0.6-1.0 cm LVIDd: 5.39 3.9-5.3/4.2-5.9 cm LVIDd Index: 2.04 2.4-3.2/2.2-3.1 cm/m2 LVIDs: 3.56 2.0-3.6 cm LVPWd: 1.40 0.7-1.1 cm LA Diam: 5.60 2.7-3.8/3.0-4.0 cm LAIDs Index: 2.12 1.5-2.3 cm/m2 LV Mass: 421.12 67-162/88-224 g LV Mass Index: 159.52 43-95/49-115 g/m2 LVOT Diam: 2.40 3.0+(-)1.3 cm Mitral Valve MV Pk E: 0.95 MV Decel Time: 205.00 E'Lateral: 11.30 E'Medial: 8.77 E/E' Med: 10.80 E/E' Lat: 8.40 PHT: 60.00 MVA PHT: 3.67 Decel Tunica: 4.74 Aortic Valve AoV Pk Brice: 1.16 AoV Mn Brice: 0.87 AoV VTI: 0.21 AoV Pk Grad: 5.00 Aov Mn Grad: 3.00 DENNIS Cont.VTI: 4.59 LVOT LVOT Pk Brice: 1.11 LVOT Mn Brice: 0.77 LVOT VTI: 0.21 LVOT Pk Grad: 5.00 LVOT Mn Grad: 3.00 LVOT Diam: 2.40 LVOT Area: 4.52 Diastolic Function MV Pk E: 0.95 E'Medial: 8.77 E/E' Med: 10.80 E' Laterial: 11.30 E/E' Lat: 8.40 Right Ventricle TAPSE (mm): 19.10 TVS' Rbice: 12.40 Tricuspid Valve TR Pk Brice: 2.28 TR Pk Grad: 21.00 RA Press: 8.00 RVSP: 29.00 Great Vessels Aorta Sinus of Valsalva: 4.10 2.0-3.5 cm Ao Asc: 4.20 2.1-3.4 cm Ao Arch: 4.00 Pulmonary Valve PV Pk Brice: 0.77 Peak PV Grad: 2.00 Updated in Other Vendor System with Status of Final Bernardo Wilson MD electronically signed on 07/06/2024 12:12:30 PM with status of Final
== END ==
LOC: HO.CARD 10:55
PROVIDERS: Visit Provider Internal Medicine Cardiovascular Disease
DX: I71.21 Aneurysm of the ascending aorta, without rupture (principal)
CPT/HCPCS: 93306; Q9957

== ENCOUNTER → 2024-07-05 10:59 | Outpatient (BNV) | payer OTHER, SELFPAY | PROVIDERS: Visit Provider Internal Medicine Cardiovascular Disease | DX: I35.0 Nonrheumatic aortic (valve) stenosis (principal); I34.81 Nonrheumatic mitral (valve) annulus calcification; I34.0 Nonrheumatic mitral (valve) insufficiency; I36.1 Nonrheumatic tricuspid (valve) insufficiency | CPT/HCPCS: 93306 ==

== ENCOUNTER 2024-11-03 11:01 | Outpatient (AMB) | payer OTHER, SELFPAY ==
[2024-11-03 11:12] VITALS: BP 122/82; PULSE 78; BMI 38.9
--- NOTE | 2024-11-03 11:12 | MHC.OFFVIS ---
Vital Signs 11/03/24 11:12 Height 6 ft 4 in Weight 319 lb 10.724 oz BMI 38.9 BP 122/82 Blood Pressure Location Lt brachial Position Sitting Pulse 78 Intake Visit Reasons: 6m follow up Intake Note: 6 month follow-up with ekg feeling ok [employer] Required: No Allergies No Known Allergies Allergy (Verified 07/16/23 09:21) Medication List - Last Reconciled 11/03/24 by Bernardo Wilson MD apixaban (Eliquis) 5 mg PO BID carvedilol 25 mg PO BID lorazepam 0.5 mg PO TID PRN paroxetine HCl 20 mg PO DAILY sacubitril-valsartan 97-103 mg (Entresto) 1 tab PO BID 90 days HPI Comments Details: Adria comes for follow-up. He unfortunately continues to smoke and drink alcohol. He denies any worsening symptoms. He does visibly appear to be somewhat short of breath but he denies any worsening shortness of breath. Denies orthopnea, PND, leg edema. Takes all his medications. He denies any bleeding issues or neurologic events. Uses his CPAP regularly. [facility] Medical History Paroxysmal atrial fibrillation History of cardioversion GWENDOLYN (obstructive sleep apnea) Obesity (BMI 30-39.9) Sleep apnea Heart failure with reduced ejection fraction Atrial fibrillation HTN (hypertension) Cardiomyopathy Acute systolic heart failure Surgical History Hx of knee surgery Family History Father No problems noted. Mother No problems noted. Social History Patient Tobacco Use Status: Current everyday Tobacco user Tobacco use type: Cigarette Cigarette Packs Per Day: 2 Cigarettes Per Day: 25 Years Smoked: 40 +/- Review of Systems Const Denies chills, Denies fatigue, Denies fever(s), Denies frequent falls, Denies weakness, Denies weight gain and Denies weight loss ENT Denies dizziness Card Denies chest pain, Denies leg edema, Denies lightheadedness, Denies palpitations, Denies dyspnea, Denies dyspnea on exertion, Denies orthopnea and Denies other (loss of consciousness) Resp Denies cough, Denies dyspnea and Denies dyspnea on exertion GI Denies hematochezia and Denies change in stool character Musc Denies abnormal gait, Denies muscle weakness, Denies numbness, Denies radiating pain into limb and Denies tingling Neuro Denies abnormal gait, Denies dizziness, Denies frequent falls, Denies numbness, Denies tingling and Denies weakness Endo Denies fatigue and Denies palpitations Physical Exam Vital Signs: Last Vital Signs Pulse 78 11/03/24 11:12 BP 122/82 11/03/24 11:12 BMI result Body Mass Index 38.9 Const General: cooperative, comfortable, no acute distress, alert and awake Nutritional Appearance: obese Orientation/consciousness: patient oriented x3 Limitations: no limitations Neck Neck: Yes trachea midline, Yes supple and Yes no JVD Resp Effort & Inspection: normal respiratory effort Auscultation: clear to auscultation bilaterally and diminished lung sounds Cardio Jugular venous distension: no JVD Palpation: normal PMI Rate: regular rate Rhythm: abnormal rhythm irregularly irregular Heart sounds: S1 normal heart sound present, S2 normal heart sound present, no click, no gallops, no murmurs and no rubs Peripheral pulses: Peripheral pulses 2+ throughout GI Inspection: Yes obesity Auscultation: normal bowel sounds Skin General skin exam: no rashes or lesions noted Neuro General: patient oriented x3 and no focal motor deficits Extrem General: Yes no clubbing, cyanosis or edema Psych Appearance: grossly normal Office Procedures EKG Details: EKG shows atrial fibrillation with nonspecific ST changes [id number], Complete Assessment & Plan Assessment & Plan (1) Persistent atrial fibrillation: Code(s): I48.19 - Other persistent atrial fibrillation Category: Medical Plan: Persistent chronic atrial fibrillation significant left atrial enlargement. We discussed about given his age again management of rhythm with ablation. He wants to defer it at this point time. At this point time given his chronicity of atrial fibrillation unlikely that he will achieve rhythm control in the longterm if he would defer it. This was discussed with him. He understands. Continue current rate control with carvedilol. Continue full oral anticoagulation, currently on Eliquis 5 mg b.i.d.. Semi annual renal function and annual CBC should be checked. Alcohol cessation was advised to reduce complication. (2) CHF (congestive heart failure), NYHA class I: Code(s): I50.9 - Heart failure, unspecified Category: Medical Plan: Heart failure with recovered LV ejection fraction with LVEF in the normal range at this point time. Clinically doing well on neurohormonal modulation with rate control. Continue Entresto as well as carvedilol therapy. Probably cardiomyopathy in the past might have been alcohol-induced and/or tachycardia mediated. With rate control his LV function has improved. Alcohol cessation was discussed. Advised to continue CPAP therapy. Advised to continue aggressive blood pressure control. Encouraged to exercise and reduce weight. (3) Ascending aorta enlargement: Code(s): I77.89 - Other specified disorders of arteries and arterioles Category: Medical Plan: Mild ascending aortic enlargement. Will continue monitor by echocardiogram on annual basis. Continue aggressive blood pressure control. Smoking cessation advised. Will follow up in the clinic in 6 months time, sooner p.r.n.. Thank you for allowing me to partake in his care Coding Level of Care Code Est Pt Level 4 (02477) Complex EM visit Add On G2211 Diagnoses Persistent atrial fibrillation I48.19 CHF (congestive heart failure), NYHA class I I50.9 Ascending aorta enlargement I77.89 CPT Codes EKG - CPT: 18214-[id number], Complete ([id number])
== END 2024-11-03 13:15 | disposition home or self-care (01) ==
LOC: HO.HCS 11:02
PROVIDERS: PCP Internal Medicine; Visit Provider Internal Medicine Cardiovascular Disease
DX: I48.19 Other persistent atrial fibrillation (principal); I50.9 Heart failure, unspecified; I77.89 Other specified disorders of arteries and arterioles
CPT/HCPCS: 93010; 99214

== ENCOUNTER → 2024-11-03 11:01 | Outpatient (BNVA) | payer OTHER, SELFPAY | PROVIDERS: PCP Internal Medicine; Visit Provider Internal Medicine Cardiovascular Disease | DX: I50.9 Heart failure, unspecified (principal) | CPT/HCPCS: 93005 ==